=== PATIENT | female | born 1990 | race Caucasian/White ===

== ENCOUNTER 2020-08-27 11:27 | Outpatient (AMBR) | payer MEDICAID, SELFPAY ==
--- NOTE | 2020-08-14 09:20 | PTNOTE_ITS ---
PT OP Initial Eval Patient Information Visit Reasons: LEFT KNEE Medical Diagnosis: M25.562 Treatment Dx #1: Left Knee Pain Treatment Dx #2: Left Knee Weakness Start of Care: 08/14/20 Initial Assessment Subjective Pt is a 30 y/o female s/p left knee partial menisectomy 07/27/20. Pt still has knee pain 4/10 based upon activities. Pt has limitation with walking, standing, chores, self care, cooking, squatting, kneeling, stairs, and performing work duties. Objective Left Knee AROM: -19 deg to 96 deg Left Knee MMTs Quads: 3-/5 Hs: 3-/5 Left Hip MMTs Glute Med: 3/5 Glute Max: 3/5 SLS: unable Assessment Pt demonstrate left knee pain and weakness s/p knee surgery leading to decline function. 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 1) Increase left knee AROM WNL in 8 wks to be able to return back to work 2) Increase left knee MMTs grossly to 4/5 in 8 wks to be able to perform squatting activities 3) Decrease knee pain to 1/10 in 8 wks to be able to walk more than 1 hr 4) Increase SLS to 20 sec in 8 wks to be able to perform self care activities 5) Increase hip MMTs grossly to 4-/5 in 8 wks to be able to perform recreational activities 6) Indep with HEP Treatment Plan 1) Manual Therapy 2) Therapeutic Activities 3) Therapeutic Exercises 4) Modalities (ice, heat) 5) Balance Training Frequency and Duration 2 x wk for 8 wks Certification Dates: 08/14/20 to 11/14/20 Office Procedures PT Procedures PT Date of Service: 08/14/20 OP PT Eval Mod Complex 30 minutes: Yes
--- NOTE | 2020-08-18 09:47 | PTNOTE_ITS ---
PT Outpatient Daily Note Date of Service: 08/18/20 OP Daily Note Visit Reasons: LEFT KNEE Outpatient Physical Therapy Treatment Date: 08/18/20 Subjective: Pt mention that her knee is better. Pt still notice morning stif fness but walking is getting better. Objective: Please see flow chart for list of ther ex performed Assessment: tolerate exercises with minimal pain Plan: Continue with PT Length of Time (minutes) of Treatment: 30 Minutes Office Procedures PT Procedures PT Date of Service: 08/14/20 OP PT Eval Mod Complex 30 minutes: Yes PT Procedures PT Date of Service: 08/18/20 Therapeutic Exercise 30 minutes: Yes
--- NOTE | 2020-08-21 10:09 | PT.ODAYNRPT ---
PT Outpatient Daily Note Date of Service: 08/21/20 OP Daily Note Visit Reasons: LEFT KNEE Outpatient Physical Therapy Treatment Date: 08/21/20 Subjective: Pt's knee hurt worse with bending. Most of patient's pain is in the front of the knee Objective: Please see flow chart for list of ther ex performed Assessment: attempted knee cap mob but unsuccessful due to patient intolerance of touch via sensitivity. Pt started to cry due to pain and mob was stop. Pt still exhibit difficulty and guarded with knee flexion due to ant knee pain Plan: Continue with PT Length of Time (minutes) of Treatment: 30 Minutes Office Procedures PT Procedures PT Date of Service: 08/21/20 Therapeutic Exercise 30 minutes: Yes PT Procedures PT Date of Service: 08/14/20 OP PT Eval Mod Complex 30 minutes: Yes PT Procedures PT Date of Service: 08/18/20 Therapeutic Exercise 30 minutes: Yes
--- NOTE | 2020-08-25 14:39 | PT.ODAYNRPT ---
PT Outpatient Daily Note Date of Service: 08/25/20 OP Daily Note Visit Reasons: LEFT KNEE Outpatient Physical Therapy Treatment Date: 08/25/20 Subjective: Pt's knee feels okay. Pt notice that bending her knee is less pain now Objective: Please see flow chart for list of ther ex performed Assessment: tolerate exercises; able to increase knee flexion AROM with heelslide today with less pain Plan: Continue with PT Length of Time (minutes) of Treatment: 30 Minutes Office Procedures PT Procedures PT Date of Service: 08/21/20 Therapeutic Exercise 30 minutes: Yes PT Procedures PT Date of Service: 08/25/20 Therapeutic Exercise 30 minutes: Yes PT Procedures PT Date of Service: 08/14/20 OP PT Eval Mod Complex 30 minutes: Yes PT Procedures PT Date of Service: 08/18/20 Therapeutic Exercise 30 minutes: Yes
--- NOTE | 2020-08-27 12:45 | PT.ODAYNRPT ---
PT Outpatient Daily Note Date of Service: 08/27/20 OP Daily Note Visit Reasons: LEFT KNEE Outpatient Physical Therapy Treatment Date: 08/27/20 Subjective: Pt mention that her knee is feeling much better. Pt really wants to go back to work and be able to kneel Objective: Please see flow chart for list of ther ex performed Assessment: tolerate exercises with minimal pain Plan: Continue with PT Length of Time (minutes) of Treatment: 30 Minutes Office Procedures PT Procedures PT Date of Service: 08/21/20 Therapeutic Exercise 30 minutes: Yes PT Procedures PT Date of Service: 08/25/20 Therapeutic Exercise 30 minutes: Yes PT Procedures PT Date of Service: 08/27/20 Therapeutic Exercise 30 minutes: Yes PT Procedures PT Date of Service: 08/14/20 OP PT Eval Mod Complex 30 minutes: Yes PT Procedures PT Date of Service: 08/18/20 Therapeutic Exercise 30 minutes: Yes
== END 2020-08-31 23:59 | disposition home or self-care (01) ==
PROVIDERS: PCP Physician Assistant; Referring Provider Physician Assistant; Visit Provider Orthopaedic Surgery
DX: M25.562 Pain in left knee (principal); R53.1 Weakness; R26.2 Difficulty in walking, not elsewhere classified; Z98.890 Other specified postprocedural states
CPT/HCPCS: 97110; 97162

== ENCOUNTER 2024-10-14 11:56 | Inpatient (IN) | payer MEDICAID, SELFPAY ==
[2024-10-14] VITALS (21 sets, daily range): BP systolic 112–148; BP diastolic 77–105; PULSE 82–108; RESP 9–25; TEMP 36.6–37.3; O2SAT 92–100; BMI 36.5
--- NOTE | 2024-10-14 12:02 | EKG_ITS ---
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
[2024-10-14 12:30] LABS: Basophils # (Auto) 0.1 Thou/mm3 (0.0-0.2); Basophils % (Auto) 0 % (0-2.5); Eosinophils # (Auto) 0.4 Thou/mm3 (0.0-0.5); Eosinophils % (Auto) 2 % (0-10); Hematocrit 38.9 % (36.0-46.0); Hemoglobin 14.6 g/dL (12.0-16.0); Immature Granulocytes Auto 0.07 Thou/mm3 (0.00-0.00); Lymphocytes # (Auto) 2.4 Thou/mm3 (1.0-4.8); Lymphocytes % (Auto) 14 % (10-50); Mean Corpuscular HGB Conc 37.5 g/dl (31.0-37.0); Mean Corpuscular Hemoglobin 31.9 pg (25.0-35.0); Mean Corpuscular Volume 85 fL (80-100); Monocytes # (Auto) 1.0 Thou/mm3 (0.0-0.8); Monocytes % (Auto) 6 % (0-12); Neutrophils # (Auto) 13.2 Thou/mm3 (1.8-7.7); Neutrophils % (Auto) 77 % (37-80); Nucleated Red Blood Cell # 0.00 Thou/mm3 (0.00-0.00); Nucleated Red Blood Cell % 0 /100 WBC (0); Platelet Count 234 Thou/mm3 (140-440); RDW Standard Deviation 38.1 fL (36.4-46.3); Red Blood Count 4.57 Miln/mm3 (4.00-5.20); White Blood Count 17.1 Thou/mm3 (3.6-11.0)
--- NOTE | 2024-10-14 12:55 | XR_ITS ---
Examination: PA lateral chest 2 views TECHNIQUE: Upright PA lateral chest 2 views Date and time: October 14, 2024 1315 hours INDICATIONS: Vomiting chest pain beginning 2 days ago. FINDINGS: Normal heart size. No aspiration pneumonia. No pulmonary edema. The osseous structures are intact IMPRESSION: No active disease.
--- NOTE | 2024-10-14 12:56 | PD.EDNV ---
Nausea/Vomit./Diarrhea-RME/HPI General Chief complaint: Nausea/Vomiting/Diarrhea Stated complaint: Vomiting and chest pain X 2 days Time Seen by Provider: 10/14/24 12:44 Source: patient Arrival date/time: 10/14/24 11:56 Mode of arrival: ambulatory Limitations: no limitations RME / HPI RME / HPI Narrative: 34-year-old female presents to the ED with a complaint of chest pain that began 2 days ago that radiates to her back. Also complains of shortness of breath and difficulty breathing. MD complaint: nausea Location of pain: diffuse Related Data Home Medications ?Medication ?Instructions ?Recorded ?Confirmed labetalol 200 mg tablet 200 mg PO BID 03/10/22 03/10/22 vit no.95-ferrous 1 tab PO DAILY 03/10/22 03/10/22 fumarate 28 mg-folic acid 800 mcg tablet () Previous Rx's ?Medication ?Instructions ?Recorded blood sugar diagnostic (Blood #100 ea 06/26/20 Glucose Test strips) blood-glucose meter (Blood Glucose #1 ea 06/26/20 Monitoring kit) lancets 33 gauge (BD Ultra Fine #100 ea 06/26/20 Lancets) pen needle, diabetic 31 gauge x #50 ea 06/26/20 1/4 (Lite Touch Insulin Pen [place]) ferrous sulfate 325 mg (65 mg 325 mg PO BID #60 tabs 03/12/22 iron) tablet ibuprofen 600 mg tablet 600 mg PO Q8H PRN fever or pain 10/01/23 #20 tabs Allergies Allergy/AdvReac Type Severity Reaction Status Date / Time Penicillins Allergy Severe CHEST PAIN Verified 10/14/24 12:00 Review of Systems Constitutional Constitutional: Reports system reviewed and no additional complaints, except as documented Eyes Eyes: Reports system reviewed and no additional complaints, except as documented, Denies dry eyes, Denies exophthalmos and Reports floaters Cardiovascular Cardiovascular: Denies chest pain with activity and Denies claudication ED Exam General Limitations: Present no limitations General appearance: Present alert and in no apparent distress Head Head exam: Present atraumatic Eye Eye exam: Present normal appearance and EOMI ENT ENT exam: Present normal exam, normal oropharynx and mucous membranes moist Neck Neck exam: Present normal inspection, full ROM and trachea midline Chest Chest inspection: Present normal inspection and symmetric chest wall rise Respiratory Respiratory exam: Present normal lung sounds bilaterally Cardiovascular Cardiovascular exam: Present regular rate, normal rhythm and normal heart sounds Abdominal Exam Abdominal exam: Present soft and normal bowel sounds Extremities Exam Extremities exam: Present normal inspection and full ROM Back Exam Back exam: Present normal inspection and full ROM Neurological Exam Neurological exam: Present alert and oriented X3 Psychiatric Psychiatric exam: Present normal affect and normal mood Skin Skin exam: Present warm, dry, intact and normal color Course Course Course Narrative: Patient will have a chest pain workup. Quality Measures none (NA) Orders Category Date Time Status Automobile Repossessor STAT Care 10/14/24 16:04 Active Continuous Pulse Oximetry STAT Care 10/14/24 16:04 Active EKG (ED ONLY) *Do not use* NOW Care 10/14/24 12:02 Completed Insert IV NOW Care 10/14/24 16:04 Active Strict Intake and Output Routine Care 10/14/24 16:04 Ordered EKG (ED Only) Stat Exams 10/14/24 12:02 Draft XR chest 2V Stat Exams 10/14/24 12:55 Completed B-Type Natriuretic Peptide Stat Lab 10/14/24 12:59 Completed Blood Culture (Lab) Stat Lab 10/14/24 16:04 Ordered CBC Stat Lab 10/14/24 12:12 Completed CMP [Comprehensive Metabolic Panel] Stat Lab 10/14/24 12:59 Completed D-Dimer Stat Lab 10/14/24 12:59 Completed Drug Screen,Urine Stat Lab 10/14/24 14:35 Completed LDH (Lactate Dehydrogenase) Stat Lab 10/14/24 12:59 Completed Lactate (Lactic Acid) Stat Lab 10/14/24 16:04 Ordered Lipase Stat Lab 10/14/24 16:04 Ordered Magnesium Stat Lab 10/14/24 12:59 Completed Partial Thromboplastin Time Stat Lab 10/14/24 12:59 Completed Procalcitonin Stat Lab 10/14/24 16:04 Ordered Prothrombin Time with INR Stat Lab 10/14/24 12:59 Completed Troponin I Stat Lab 10/14/24 12:59 Completed Urinalysis Stat Lab 10/14/24 14:35 Completed Magnesium Sulfate 4 GM Ivpb [Magnesium Sulfate Ivpb] Med 10/14/24 16:04 Active 4 gm in 50 ml IV X1 Vital Signs Vital signs: Vital Signs Temperature 98.5 F 10/14/24 12:23 Pulse Rate 101 H 10/14/24 12:23 Respiratory Rate 18 10/14/24 12:23 Blood Pressure 148/96 H 10/14/24 12:23 Pulse Oximetry (%) 98 10/14/24 12:23 Oxygen Delivery Method Room Air 10/14/24 12:23 Pulse ox room air is 98% Nausea/Vomiting/Diarrhea MDM Narrative MDM Narrative:: Patient will be discharged in no apparent distress and she will be informed that cocaine metabolite as well as marijuana have been discovered in her bloodstream. Patient data External records reviewed:: Other (specify) (NA) Clinical information provided by:: none (NA) Social determinants that could affect healthcare access:: none Patient has the following chronic illnesses:: NA How is presenting disease/condition affected by chronic disease/condition?: no chronic disease (NA) Medications / Prescriptions Medication administrations:: Medication Administration History Magnesium Sulfate (Magnesium Sulfate Ivpb) 4 gm in 50 mls @ 12.5 mls/hr IV X1 ONE Stop: 10/14/24 20:03 Consultations Consultation(s) initiated? (list below): No Diagnosis Nausea Differential Diagnosis: gastroenteritis, clostridium difficile infection and drug-induced nausea and vomiting Admission Indicated Admission indicated?: not indicated Admission Request Was there a request for admission?: No Disposition Plan Disposition Plan: Discharge Discharge Attestation Discharge Attestation: The patient and all family members were given an opportunity to ask questions and understood the discharge instructions. Discharge instructions specifically effects, indications for sooner follow up or return to the emergency department, and the expected course of current diagnosis. Patient condition: Stable Discharge Plan Prescriptions/Referrals Prescriptions/Med Rec: No Action (DME) blood-glucose meter [Blood Glucose Monitoring] Kit See Rx Instructions .ROUTE .MEDSUPPLY Qty: 1 0RF Rx Instructions: As directed check BS 3 times a day (DME) pen needle, diabetic [Lite Touch Insulin Pen [place]] 31 gauge x 1/4 needle See Rx Instructions .ROUTE .MEDSUPPLY Qty: 50 0RF Rx Instructions: As directed (DME) Blood Glucose Test Strip See Rx Instructions .ROUTE .MEDSUPPLY Qty: 100 0RF Rx Instructions: As directed check BS 3 times a day (DME) lancets [BD Ultra Fine Lancets] 33 gauge misc See Rx Instructions .ROUTE .MEDSUPPLY Qty: 100 0RF Rx Instructions: As directed check BS 3 times a day labetalol 200 mg tablet 200 mg PO BID Patient Comments: TAKE 1 TABLET BY MOUTH TWICE A DAY PNV cmb#95-ferrous fumarate-FA [] 28 mg iron- 800 mcg tablet 1 tab PO DAILY Patient Comments: TAKE 1 TABLET BY MOUTH EVERY DAY ferrous sulfate 325 mg (65 mg iron) tablet 325 mg PO BID Qty: 60 1RF ibuprofen 600 mg tablet 600 mg PO Q8H PRN (Reason: fever or pain) Qty: 20 0RF Referrals: Lissette Portillo PA-C [Primary Care Provider] - In 1 week Patient/Caregiver Discharge Instructions Print Language: Bel[place]ian
[2024-10-14 13:53] LABS: D-Dimer < 250 ng/mL (<600)
[2024-10-14 13:59] LABS: Alanine Aminotransferase 20 U/L (10-49); Albumin, Serum 4.6 gm/dL (3.5-5.0); Albumin/Globulin Ratio 1.6 (1.2-2.2); Alkaline Phosphatase 121 U/L (46-116); Anion Gap 19 (7-16); Aspartate Amino Transferase 30 U/L (0-34); BUN/Creatinine Ratio 9 Ratio (12-20); Bilirubin,Total 0.6 mg/dL (0.3-1.2); Blood Urea Nitrogen 8 mg/dL (9-23); Calcium 9.3 mg/dL (8.3-10.6); Calcium (Corrected) 9.3 mg/dL (8.5-10.1); Carbon Dioxide 17.2 mMol/L (20.0-31.0); Chloride 102 mMol/L (98-107); Creatinine (Component) 0.9 mg/dL (0.6-1.3); Estimated Creatinine Clearance 108.6 mL/min (>60); Globulin 2.9 gm/dL (2.3-3.5); Glucose 290 mg/dL (74-106); Magnesium 1.3 mg/dL (1.6-2.6); Osmolality,Calculated 284 (275-295); Sodium 138 mMol/L (136-145); Total Protein 7.5 gm/dL (5.7-8.2); Troponin I < 0.002 ng/mL (0.0-0.045); eGFR > 60 See Note
[2024-10-14 14:03] LABS: LDH (Lactate Dehydrogenase) 380 U/L (120-246); Potassium 4.5 mMol/L (3.4-5.1)
[2024-10-14 14:15] LABS: B-Type Natriuretic Peptide < 20 pg/mL (0-100)
[2024-10-14 14:44] LABS: Collection Type, Urine Clean Catch; RBC,Urine 0 /hpf (0-3)
[2024-10-14 15:02] LABS: INR 0.9 (0.9-1.3); Partial Thromboplastin Time 24.5 Seconds (22.0-36.0); Prothrombin Time 10.4 Seconds (9.0-12.2)
[2024-10-14 15:02] LABS: Bilirubin,Urine Negative (Negative); Blood,Urine Negative (Negative); Clarity,Urine Turbid (Clear/Hazy); Color,Urine Yellow (Lt Yel-Yel); Glucose, Urine 4+ (Negative); Ketones,Urine 2+ (Negative); Leukocyte Esterase,Urine Negative (Negative); Nitrite,Urine Negative (Negative); PH,Urine 5.5 (5.0-7.0); Protein,Urine 1+ (Neg - Trace); Specific Gravity,Urine 1.031 (1.001-1.035); Squamous Epithelial Cell,Urine 14 /hpf (0-5); Urobilinogen,Urine Negative mg/dL (0.0-1.0); WBC,Urine 1 /hpf (0-5)
[2024-10-14 15:07] LABS: Amphetamine/Methamp Scrn,U Negative (Negative); Barbiturate Screen,Urine Negative (Negative); Benzodiazepines Screen,Urine Negative (Negative); Benzoylecgonine Screen, Ur Negative (Negative); Fentanyl Screen,Urine Negative (Negative); Opiate Screen,Urine Negative (Negative); THC Screen,Urine Negative (Negative)
--- NOTE | 2024-10-14 16:08 | EDNOTE_ITS ---
ED Chest Pain RME/HPI General Chief Complaint: Nausea/Vomiting/Diarrhea Stated Complaint: Vomiting and chest pain X 2 days Time Seen by Provider: 10/14/24 12:44 Source: patient Arrival date/time: 10/14/24 11:56 Mode of arrival: ambulatory Limitations: no limitations RME / HPI RME / HPI narrative: 34-year-old female presents to the ED with a complaint of chest pain that began 2 days ago that radiates to her back. Also complains of shortness of breath and difficulty breathing. DR. ARAVIND SORTO ED EVALUATION 34 year old female presents to the ED for evaluation of central chest pain beginning yesterday. Described as tightness in sensation, rating as moderate. Accompanied by sweating, shortness of breath and sharp epigastric pain that r adiates to her back. Reportedly had experienced similar pain before and evaluated by PCP. However, due to insurance was unable to have additional testing done and the cause of pain is unknown. Denies pain being associated with food. Denies fevers, chills, vomiting, diarrhea, constipation, or urinary symptoms. Related Data Home Medications ?Medication ?Instructions ?Recorded ?Confirmed losartan 50 mg tablet 50 mg PO DAILY 10/16/2410/01 Previous Rx's ?Medication ?Instructions ?Recorded blood sugar diagnostic (Blood #100 ea 06/26/20 Glucose Test strips) blood-glucose meter (Blood Glucose #1 ea 06/26/20 Monitoring kit) lancets 33 gauge (BD Ultra Fine #100 ea 06/26/20 Lancets) pen needle, diabetic 31 gauge x #50 ea 06/26/2004/06 (Lite Touch Insulin Pen Lawtell) blood-glucose sensor (FreeStyle #1 ea 10/16/24 Mayte 3 Plus Sensor device) atorvastatin 20 mg tablet 20 mg PO HS #30 tabs 5 fenofibrate nanocrystallized 145 145 mg PO QDAY #30 ta bs 10/18/24 mg tablet insulin glargine 100 unit/mL (3 25 unit (0.25 mL) subc ut QAM #15 mL 10/18/24 mL) subcutaneous pen insulin glargine U-300 conc 300 25 unit (0.0833 mL) muhammad bcut QDAY 1 10/18/24 unit/mL (3 mL) subcutaneous pen month #6 mL ketorolac 10 mg tablet 10 mg PO Q8H PRN pain #14 ta bs 10/18/24 ondansetron HCl 4 mg tablet 4 mg PO Q8H PRN nausea and 10/18/24 vomiting #14 tabs pen needle, diabetic 29 gauge x #100 ea 10/18/24 1/2 (Pen Needle) polyethylene glycol 3350 17 gram 17 g PO QDAY #30 ea 0 10/18/24 oral powder packet (HealthyLax) Allergies Allergy/AdvReac Type Severity Reaction Status Date / Time Penicillins Allergy Severe CHEST PAIN Verified 10/14/24 12:00 Review of Systems Review of Systems Systems Reviewed: All systems reviewed, normal except as documented Past Medical History Past Medical History NEUROLOGIC: Negative Neurological Disorders CARDIAC: 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) GASTROINTESTINAL: Positive Obesity GENITOURINARY: Positive Genitourinary Disorders and Kidney Stones (past hx) REPRODUCTIVE: Positive Previous Pregnancies ENDOCRINE: Positive Endocrine Disorders and Diabetes Mellitus Type 2 OTHER HISTORY: Positive Hospitalization Family History FAMILY HISTORY: Positive Family Cardiac Disorders (father - heart attack/heart surgery); Negative Family Psychiatric Problems, Family Respiratory Disorders, Family Gastrointestinal Problems, Family Cancer, Family Surgery or Family Anesthesia Re action Surgical History SURGICAL: Positive Section (x2); Negative Endocrine Surgery, Ear Surgery, Abdominal Surgery, Nephrectomy or Joint Replacement Social History SMOKING STATUS: Never smoker SECOND HAND EXPOSURE: No SUBSTANCE USE: does not use ED Exam General Limitations: Present no limitations General appearance: Present alert and in no apparent distress Head Head exam: Present atraumatic and normocephalic Eye Eye exam: Present normal appearance, PERRL and EOMI ENT ENT exam: Present normal exam, normal oropharynx and mucous membranes moist Neck Neck exam: Present normal inspection, full ROM and trachea midline Chest Chest inspection: Present symmetric chest wall rise and other (chest wall tenderness ) Respiratory Respiratory exam: Present normal lung sounds bilaterally Cardiovascular Cardiovascular exam: Present regular rate, normal rhythm and normal heart sounds Abdominal Exam Abdominal exam: Present soft, tenderness (in all quadrants ) and normal bowel sounds Extremities Exam Extremities exam: Present normal inspection and full ROM Back Exam Back exam: Present full ROM and other (Point tenderness along the T and L spine, bilateral CVA tenderness ) Neurological Exam Neurological exam: Present alert, oriented X3 and CN II-XII intact Psychiatric Psychiatric exam: Present normal affect and normal mood Skin Skin exam: Present warm, dry, intact and normal color Course Course Course Narrative: Patient will have a chest pain workup. Quality Measures none Orders Category Date Time Status CT Screening NOW Care 10/14/24 16:14 Completed Belt Brander Q4H Care 10/14/24 16:04 Completed Continuous Pulse Oximetry STAT Care 10/14/24 16:04 Completed EKG (ED ONLY) *Do not use* NOW Care 10/14/24 12:02 Completed Insert IV NOW Care 10/14/24 16:04 Completed Strict Intake and Output Routine Care 10/14/24 16:[address] chest abdomen pelvis w Stat Exams 10/14/24 16:14 Completed EKG (ED Only) Stat Exams 10/14/24 12:02 Draft XR chest 2V Stat Exams 10/14/24 12:55 Completed B-Type Natriuretic Peptide Stat Lab 10/14/24 12:59 Completed Blood Culture (Lab) Stat Lab 10/14/24 16:25 Completed CBC Stat Lab 10/14/24 12:12 Completed CMP [Comprehensive Metabolic Panel] Stat Lab 10/14/24 12:59 Completed D-Dimer Stat Lab 10/14/24 12:59 Completed Drug Screen,Urine Stat Lab 10/14/24 14:35 Completed HCG Qualitative,Urine Stat Lab 10/14/24 14:35 Completed Ketone [Beta Hydroxybutyrate] Stat Lab 10/14/24 16:25 Completed Ketone [Beta Hydroxybutyrate] Stat Lab 10/14/24 17:55 Completed LDH (Lactate Dehydrogenase) Stat Lab 10/14/24 12:59 Completed Lactate (Lactic Acid) Stat Lab 10/14/24 16:25 Completed Lipase Stat Lab 10/14/24 16:25 Completed Magnesium Stat Lab 10/14/24 12:59 Completed Partial Thromboplastin Time Stat Lab 10/14/24 12:59 Completed Procalcitonin Stat Lab 10/14/24 16:25 Completed Prothrombin Time with INR Stat Lab 10/14/24 12:59 Completed Troponin I Stat Lab 10/14/24 12:59 Completed Urinalysis Stat Lab 10/14/24 14:35 Completed Famotidine Inj [Pepcid Inj] Med 10/14/24 17:34 Discontinued 20 mg IVP X1 ONE HYDROmorphone INJ [Dilaudid Inj] Med 10/14/24 17:45 Discontinued 0.5 mg IVP Q30M PRN HYDROmorphone INJ [Dilaudid Inj] Med 10/14/24 19:29 Discontinued 1 mg IVP X1 ONE Insulin Reg 100 Units/100 ml [Myxredlin] Med 10/14/24 17:00 Discontinued 100 unit in 100 ml IV 0.1 unit/kg/hr Insulin Regular Med 10/14/24 17:22 Discontinued 10 unit SC X1 ONE Magnesium Sulfate 4 GM Ivpb [Magnesium Sulfate Ivpb] Med 10/14/24 16:04 Discontinued 4 gm in 50 ml IV X1 Ondansetron Inj [Zofran Inj] Med 10/14/24 17:34 Discontinued 4 mg IVP X1 ONE Sodium Chloride 0.9% 1000 ml [Ns] 1,000 ml Med 10/14/24 16:12 Discontinued IV 999 mls/hr Sodium Chloride 0.9% 1000 ml [Ns] 1,000 ml Med 10/14/24 17:20 Discontinued IV 999 mls/hr mg Hyd/Al Hyd/Carlie Susp [Maalox Susp] Med 10/14/24 17:34 Discontinued 30 ml PO X1 ONE Vital Signs Vital signs: Vital Signs Temperature 98.5 F 10/14/24 12:23 Pulse Rate 101 H 10/14/24 12:23 Respiratory Rate 18 10/14/24 12:23 Blood Pressure 148/96 H 10/14/24 12:23 Pulse Oximetry (%) 98 10/14/24 12:23 Oxygen Delivery Method Room Air 10/14/24 12:23 Pulse ox is 98% on room air which is adequate. Chest Pain MDM Narrative MDM Narrative:: Whitney Medrano am scribing for and in the presence of Dr. Edward. 1800: Patient signed out to Dr. Holcomb pending CT abdomen and final disposition. Patient data External records reviewed:: [facility] previous records (I reviewed ED visit on 10/01/2023 ) Clinical information provided by:: patient Social determinants that could affect healthcare access:: none Patient has the following chronic illnesses:: Hx of c-sections, no chronic medical hx reported How is presenting disease/condition affected by chronic disease/condition?: uneffected by Evaluation data The following diagnostics were reviewed and interpreted by me:: lab results, radiology exam(s) and EKG tracing(s) (EKG @ 12:24 PM. Sinus tachycardia, rate 114, normal axis, no ectopy, no signs of acute ischemia ) Lab and/or radiology exams considered but not ordered:: None Interpretation Summary: Ordering Physician: Yobani Pacheco PA-C Date of Service: 10/14/24 Procedure(s): XR chest 2V Accession Number(s): [id number] cc: Frankie Maciel MD; Yobani Pacheco PA-C; Lissette Portillo PA-C~ Examination: PA lateral chest 2 views TECHNIQUE: Upright PA lateral chest 2 views Date and time: October 14, 2024 1315 hours INDICATIONS: Vomiting chest pain beginning 2 days ago. FINDINGS: Normal heart size. No aspiration pneumonia. No pulmonary edema. The osseous structures are intact IMPRESSION: No active disease. Dictated By: Frankie Maciel MD Signed By: <Electronically signed by Frankie Maciel MD in OV> 10/14/24 1326 Medications / Prescriptions Medications or Prescriptions considered but not ordered:: None Medication administrations:: Medication Administration History Discontinued Medications Acetaminophen (Acetaminophen 325 Mg Tablet) 650 mg PO Q6H PRN PRN Reason: PAIN SCALE 1-3 (mild Stop: 11/13/24 19:45 Last Admin: 10/16/24 07:45 Dose: 650 mg Documented By: LP Comments: Pt requested Tylenol until it was time for Dilaudid. Pt c/o really bad headache. Admin: 10/15/24 10:30 Dose: 650 mg Documented By: WL Al Hydrox/Mg Hydrox/Simethicone (Mg Hyd/Al Hyd/Carlie (Maalox Reg) Susp 30 Ml Udc) 30 ml PO X1 ONE Stop: 10/14/24 17:35 Last Admin: 10/14/24 18:08 Dose: 30 ml Documented By: VG Atorvastatin Calcium (Atorvastatin Calcium 20 Mg Tablet) 20 mg PO HS [place] Stop: 11/14/24 20:59 Last Admin: 10/17/24 21:56 Dose: 20 mg Documented By: Admin: 10/16/24 20:14 Dose: 20 mg Documented By: Admin: 10/15/24 20:23 Dose: 20 mg Documented By: WO Dextrose (Dextrose 50%-Water Inj 50 Ml Syringe) 25 ml IV Q15MIN PRN PRN Reason: BG 50-70 responsive npo pt Stop: 11/13/24 19:59 Dextrose (Dextrose 50%-Water Inj 50 Ml Syringe) 50 ml IV Q15MIN PRN PRN Reason: BG <50 OR BG <70 & pt unresponsive Stop: 11/13/24 19:59 Dextrose (Dextrose 50%-Water Inj 50 Ml Syringe) 25 ml IV Q15MIN PRN PRN Reason: Blood sugar between 50- 69 mg/dL Stop: 11/13/24 21:39 Dextrose (Dextrose 50%-Water Inj 50 Ml Syringe) 50 ml IV Q15MIN PRN PRN Reason: Blood sugar less than 50 mg/dL Stop: 11/13/24 21:39 Famotidine (Famotidine Inj 10 Mg/Ml Vial 2 Ml) 20 mg IVP X1 ONE Stop: 10/14/24 17:35 Last Admin: 10/14/24 18:09 Dose: 20 mg Documented By: JENNIE Fenofibrate (Fenofibrate 145 Mg Tablet (Non-Formulary)) 145 mg PO QDAY [facility] Stop: 11/14/24 10:44 Last Admin: 10/18/24 09:00 Dose: 145 mg Documented By: Admin: 10/17/24 09:17 Dose: 145 mg Documented By: Admin: 10/16/24 09:39 Dose: 145 mg Documented By: Admin: 10/15/24 11:26 Dose: 145 mg Documented By: JOHN Glucagon (Glucagon Inj 1 Mg Vial) 1 mg IM Q15MIN PRN PRN Reason: BG <70, and no IV access Glucagon (Glucagon Inj 1 Mg Vial) 1 mg IM QDAY PRN PRN Reason: Blood sugar less than 70 mg/dL Stop: 11/13/24 21:39 Glucagon (Glucagon Inj 1 Mg Vial) 1 mg IM Q15MIN PRN PRN Reason: BG <70, and no IV access Heparin Sodium (Porcine) (Heparin Sod Inj 5000 Unit/Ml Vial) 5,000 unit SC Q12HR [facility] Stop: 10/28/24 20:59 Last Admin: 10/18/24 08:58 Dose: 5,000 unit Documented By: IGOR Co-signed By: PORSHA Admin: 10/17/24 21:57 Dose: 5,000 unit Documented By: JOSE Co-signed By: PATI Admin: 10/17/24 09:18 Dose: 5,000 unit Documented By: INDIGO Co-signed By: KAYLEIGH Admin: 10/16/24 20:14 Dose: 5,000 unit Documented By: PG Co-signed By: MADELEINE Admin: 10/16/24 08:42 Dose: 5,000 unit Documented By: DRU Co-signed By: IFTIKHAR Admin: 10/15/24 20:22 Dose: 5,000 unit Documented By: JESS Co-signed By: GAMALIEL Admin: 10/15/24 08:04 Dose: 5,000 unit Documented By: JOHN Co-signed By: jovi Admin: 10/14/24 21:21 Dose: 5,000 unit Documented By: LIGIA Co-signed By: JASMYN Hydromorphone HCl (Hydromorphone Inj 2 Mg/Ml Vial) 0.5 mg IVP Q30M PRN PRN Reason: PAIN Stop: 10/15/24 17:44 Last Admin: 10/14/24 18:08 Dose: 0.5 mg Documented By: JENNIE Comments: . Hydromorphone HCl (Hydromorphone Inj 2 Mg/Ml Vial) 1 mg IVP X1 ONE Stop: 10/14/24 19:30 Last Admin: 10/14/24 19:42 Dose: 1 mg Documented By: LIGIA Hydromorphone HCl (Hydromorphone Inj 2 Mg/Ml Vial) 1 mg IVP Q4H PRN PRN Reason: Pain 7-10 Stop: 10/22/24 19:56 Last Admin: 10/18/24 09:00 Dose: 1 mg Documented By: [email or web address] Admin: 10/18/24 04:04 Dose: 1 mg Documented By: Admin: 10/17/24 22:16 Dose: 1 mg Documented By: Admin: 10/17/24 16:03 Dose: 1 mg Documented By: Admin: 10/17/24 09:18 Dose: 1 mg Documented By: Admin: 10/16/24 23:47 Dose: 1 mg Documented By: Admin: 10/16/24 18:28 Dose: 1 mg Documented By: Admin: 10/16/24 08:43 Dose: 1 mg Documented By: Admin: 10/16/24 04:18 Dose: 1 mg Documented By: Admin: 10/15/24 19:38 Dose: 1 mg Documented By: Admin: 10/15/24 13:41 Dose: 1 mg Documented By: Admin: 10/15/24 05:14 Dose: 1 mg Documented By: Admin: 10/14/24 22:20 Dose: 1 mg Documented By: MARANDA Magnesium Sulfate (Magnesium Sulfate Ivpb) 4 gm in 50 mls @ 12.5 mls/hr IV X1 ONE Stop: 10/14/24 20:03 Last Admin: 10/14/24 17:24 Dose: 12.5 mls/hr Documented By: VG Sodium Chloride (Ns) 1,000 mls @ 999 mls/hr IV .Q1H1M ONE Stop: 10/14/24 17:12 Last Infusion: 10/14/24 19:25 Dose: Infused Documented By: Admin: 10/14/24 17:22 Dose: 999 mls/hr Documented By: VG Insulin Human Regular (Myxredlin) 100 unit in 100 mls @ 10.274 mls/hr IV .Q9H44M PRN; Protocol PRN Reason: PER PROTOCOL Stop: 11/13/24 16:59 Sodium Chloride (Ns) 1,000 mls @ 999 mls/hr IV .Q1H1M ONE Stop: 10/14/24 18:20 Last Admin: 10/14/24 17:57 Dose: 999 mls/hr Documented By: VG Lactated Ringer's (Lactated Ringers) 1,000 mls @ 200 mls/hr IV .Q5H [place] Stop: 11/13/24 19:59 Last Admin: 10/14/24 21:40 Dose: 200 mls/hr Documented By: LIGIA(2) Insulin Human Regular (Myxredlin) 100 unit in 100 mls @ 10.274 mls/hr IV .Q9H44M [place]ER[place] Stop: 11/13/24 21:44 Last Infusion: 10/15/24 12:30 Dose: 0 unit/kg/hr, 0 mls/hr Documented By: JOHN Co-signed By: jovi Admin: 10/15/24 08:00 Dose: 0.1 unit/kg/hr, 10.274 mls/hr Documented By: JOHN Co-signed By: jovi Infusion: 10/15/24 08:00 Dose: Infused Documented By: JOHN Co-signed By: jovi Infusion: 10/15/24 01:00 Dose: 0.1 unit/kg/hr, 10.274 mls/hr Documented By: MARANDA Co-signed By: JAMEL Infusion: 10/15/24 00:00 Dose: 0 unit/kg/hr, 0 mls/hr Documented By: CLT Co-signed By: JAMEL Infusion: 10/14/24 23:00 Dose: 0.1 unit/kg/hr, 10.274 mls/hr Documented By: CLT Co-signed By: JAMEL Admin: 10/14/24 22:15 Dose: 0.1 unit/kg/hr, 10.274 mls/hr Documented By: CLT Co-signed By: AJMEL Dextrose/Lactated Ringer's (D5-Lr) 1,000 mls @ 150 mls/hr IV .Q6H40M [place]ER[place] Stop: 11/13/24 21:44 Last Admin: 10/15/24 10:28 Dose: Not Given Documented By: JOHN Non-Admin Reason: Wrong Time Admin: 10/15/24 07:51 Dose: Not Given Documented By: JOHN Non-Admin Reason: Cancelled by Provider Admin: 10/14/24 23:01 Dose: Not Given Documented By: KEVINT Non-Admin Reason: Cancelled by Provider Potassium Chloride (Kcl Ivpb) 10 meq in 100 mls @ 100 mls/hr IV X1 ONE Stop: 10/14/24 23:16 Last Admin: 10/14/24 22:37 Dose: Not Given Documented By: KEVINT Non-Admin Reason: Cancelled by Provider Potassium Chloride (Kcl Ivpb) 10 meq in 100 mls @ 100 mls/hr IV .Q1H PRN PRN Reason: IF POTASSIUM LESS THAN 3.3 Stop: 11/13/24 22:24 Magnesium Sulfate (Magnesium Sulfate Ivpb) 2 gm in 50 mls @ 25 mls/hr IV .Q2H PRN PRN Reason: PER DKA PROTOCOL Stop: 11/13/24 22:24 Insulin Human Regular 100 unit (/ IV Miscellaneous Supplies) 100 mls @ 10.274 mls/hr IV .Q9H44M PRN; Protocol PRN Reason: PER PROTOCOL Stop: 11/13/24 22:24 Dextrose/Lactated Ringer's (D5-Lr) 1,000 mls @ 250 mls/hr IV .Q4H PRN PRN Reason: PER PROTOCOL Stop: 11/13/24 22:24 Lactated Ringer's (Lactated Ringers) 1,000 mls @ 250 mls/hr IV .Q4H PRN PRN Reason: PER PROTOCOL Stop: 10/15/24 22:24 Last Infusion: 10/15/24 00:00 Dose: 0 mls/hr Documented By: Admin: 10/14/24 23:14 Dose: 250 mls/hr Documented By: CLT Potassium Chloride 20 meq/ (Lactated Ringer's) 1,010 mls @ 250 mls/hr IV .Q4H3M PRN PRN Reason: K LEVEL 3.3 TO 5.3mM/L Stop: 11/13/24 22:24 Potassium Chloride 40 meq/ (Lactated Ringer's) 1,020 mls @ 250 mls/hr IV .Q4H5M PRN PRN Reason: K LEVEL < 3.3 mM/L Stop: 11/13/24 22:24 Potassium Chloride 40 meq/ (Dextrose/Lactated Ringer's) 1,020 mls @ 250 mls/hr IV .Q4H5M PRN PRN Reason: K LEVEL < 3.3mM/L Stop: 11/13/24 22:24 Potassium Cl/Dextrose/Lact Ringer's (Kcl 20 Meq/L In D5-Lr) 20 meq in 1,000 mls @ 250 mls/hr IV .Q4H PRN PRN Reason: K LEVEL 3.3 TO 5.3 mM/L Stop: 11/13/24 22:24 Last Infusion: 10/15/24 11:33 Dose: Infused Documented By: Admin: 10/15/24 02:47 Dose: 250 mls/hr Documented By: Infusion: 10/15/24 02:44 Dose: Infused Documented By: Admin: 10/14/24 22:44 Dose: 250 mls/hr Documented By: CLT Potassium Chloride (Kcl Ivpb) 10 meq in 100 mls @ 50 mls/hr IV PRN PRN PRN Reason: K LEVEL 3.3 to 5.3 & BG > 200 Stop: 11/13/24 22:24 Potassium Phosphate (Pot Phos 15 Mmol In Ns 250 Ml) 15 mmol in 250 mls @ 62.5 mls/hr IV PRN PRN PRN Reason: Phosphate <= 1mg/dL Stop: 11/13/24 22:24 Sodium Phosphate 15 mmol/ (Sodium Chloride) 255 mls @ 62.5 mls/hr IV .Q4H5M PRN PRN Reason: Phosphate <= 1mg/dL and K> than 5.3 Stop: 11/13/24 22:24 Potassium Chloride (Kcl Ivpb) 10 meq in 100 mls @ 100 mls/hr IV .Q1H PRN PRN Reason: IF POTASSIUM LESS THAN 3.3 Stop: 11/13/24 22:24 Magnesium Sulfate (Magnesium Sulfate Ivpb) 2 gm in 50 mls @ 25 mls/hr IV .Q2H PRN PRN Reason: PER DKA PROTOCOL Stop: 11/13/24 22:24 Dextrose/Lactated Ringer's (D5-Lr) 1,000 mls @ 250 mls/hr IV .Q4H PRN PRN Reason: PER PROTOCOL Stop: 11/13/24 22:24 Lactated Ringer's (Lactated Ringers) 1,000 mls @ 250 mls/hr IV .Q4H PRN PRN Reason: PER PROTOCOL Stop: 10/15/24 22:24 Potassium Chloride 20 meq/ (Lactated Ringer's) 1,010 mls @ 250 mls/hr IV .Q4H3M PRN PRN Reason: K LEVEL 3.3 TO 5.3mM/L Stop: 11/13/24 22:24 Potassium Chloride 40 meq/ (Lactated Ringer's) 1,020 mls @ 250 mls/hr IV .Q4H5M PRN PRN Reason: K LEVEL < 3.3 mM/L Stop: 11/13/24 22:24 Potassium Chloride 40 meq/ (Dextrose/Lactated Ringer's) 1,020 mls @ 250 mls/hr IV .Q4H5M PRN PRN Reason: K LEVEL < 3.3mM/L Stop: 11/13/24 22:24 Potassium Cl/Dextrose/Lact Ringer's (Kcl 20 Meq/L In D5-Lr) 20 meq in 1,000 mls @ 250 mls/hr IV .Q4H PRN PRN Reason: K LEVEL 3.3 TO 5.3 mM/L Stop: 11/13/24 22:24 Potassium Chloride (Kcl Ivpb) 10 meq in 100 mls @ 50 mls/hr IV PRN PRN PRN Reason: K LEVEL 3.3 to 5.3 & BG > 200 Stop: 11/13/24 22:24 Potassium Phosphate (Pot Phos 15 Mmol In Ns 250 Ml) 15 mmol in 250 mls @ 62.5 mls/hr IV PRN PRN PRN Reason: Phosphate <= 1mg/dL Stop: 11/13/24 22:24 Sodium Phosphate 15 mmol/ (Sodium Chloride) 255 mls @ 62.5 mls/hr IV .Q4H5M PRN PRN Reason: Phosphate <= 1mg/dL and K> than 5.3 Stop: 11/13/24 22:24 Potassium Chloride (Kcl Ivpb) 10 meq in 100 mls @ 100 mls/hr IV Q1H [place] Stop: 10/15/24 01:58 Last Admin: 10/15/24 07:51 Dose: Not Given Documented By: JOHN Non-Admin Reason: Cancelled by Provider Admin: 10/15/24 07:51 Dose: Not Given Documented By: JOHN Non-Admin Reason: Cancelled by Provider Lactated Ringer's (Lactated Ringers) 1,000 mls @ 150 mls/hr IV .Q6H40M PRN PRN Reason: PER PROTOCOL Stop: 10/15/24 22:24 Last Admin: 10/15/24 11:33 Dose: 150 mls/hr Documented By: JOHN Dextrose/Lactated Ringer's (D5-Lr) 1,000 mls @ 150 mls/hr IV .Q6H40M PRN PRN Reason: PER PROTOCOL Stop: 11/13/24 22:24 Lactated Ringer's (Lactated Ringers) 1,000 mls @ 150 mls/hr IV .Q6H40M PRN PRN Reason: PER PROTOCOL Stop: 10/15/24 22:24 Magnesium Sulfate (Magnesium Sulfate Ivpb) 2 gm in 50 mls @ 25 mls/hr IV X1 ONE Stop: 10/15/24 09:17 Last Admin: 10/15/24 07:59 Dose: 25 mls/hr Documented By: JOHN Lactated Ringer's (Lactated Ringers) 1,000 mls @ 150 mls/hr IV .Q6H40M [place]ER[place] Stop: 11/14/24 15:20 Last Admin: 10/17/24 15:59 Dose: 150 mls/hr Documented By: Infusion: 10/17/24 08:16 Dose: Infused Documented By: Admin: 10/17/24 01:35 Dose: 150 mls/hr Documented By: Infusion: 10/17/24 00:28 Dose: Infused Documented By: Admin: 10/16/24 17:47 Dose: 150 mls/hr Documented By: Infusion: 10/16/24 13:00 Dose: Infused Documented By: Admin: 10/16/24 06:19 Dose: 150 mls/hr Documented By: Infusion: 10/16/24 06:19 Dose: Infused Documented By: Admin: 10/16/24 00:00 Dose: 150 mls/hr Documented By: Infusion: 10/15/24 23:08 Dose: Infused Documented By: Admin: 10/15/24 16:27 Dose: 150 mls/hr Documented By: JOHN Magnesium Sulfate (Magnesium Sulfate Ivpb) 2 gm in 50 mls @ 25 mls/hr IV X1 ONE Stop: 10/16/24 10:15 Last Infusion: 10/16/24 13:34 Dose: Infused Documented By: Admin: 10/16/24 11:35 Dose: 25 mls/hr Documented By: DRU Magnesium Sulfate (Magnesium Sulfate Ivpb) 4 gm in 50 mls @ 12.5 mls/hr IV X1 ONE Stop: 10/17/24 12:29 Last Admin: 10/17/24 09:18 Dose: 12.5 mls/hr Documented By: INDIGO Insulin Glargine (Insulin Glargine (Lantus) 5 Unit/0.05 Ml (Per 5 Units)) 25 unit SC QDAY [facility] Stop: 11/14/24 10:44 Last Admin: 10/18/24 09:01 Dose: 25 unit Documented By: [email or web address] Co-signed By: PORSHA Admin: 10/17/24 09:19 Dose: 25 unit Documented By: INDIGO Co-signed By: KAYLEIGH Admin: 10/16/24 08:42 Dose: 25 unit Documented By: DRU Co-signed By: IFTIKHAR Admin: 10/15/24 11:14 Dose: 25 unit Documented By: JOHN Co-signed By: TM Insulin Human Lispro (Insulin Lispro (Admelog) 1 Unit/0.01 Ml Unit) 0 unit SC Q6HR [place]; Protocol Stop: 11/13/24 19:59 Last Admin: 10/14/24 21:19 Dose: 2 unit Documented By: LIGIA Co-signed By: JASMYN Insulin Human Lispro (Insulin Lispro (Admelog) 1 Unit/0.01 Ml Unit) 0 unit SC ACHS [facility]; Protocol Stop: 11/14/24 11:29 Last Admin: 10/18/24 11:54 Dose: 1 unit Documented By: IGOR Co-signed By: PORSHA Admin: 10/18/24 07:52 Dose: Not Given Documented By: IGOR Non-Admin Reason: Per Protocol Admin: 10/17/24 22:09 Dose: Not Given Documented By: CTF Non-Admin Reason: Per Protocol Admin: 10/17/24 18:06 Dose: Not Given Documented By: LH Non-Admin Reason: Per Protocol Admin: 10/17/24 17:07 Dose: Not Given Documented By: LH Non-Admin Reason: Per Protocol Admin: 10/17/24 09:18 Dose: 1 unit Documented By: INDIGO Co-signed By: KAYLEIGH Admin: 10/16/24 20:18 Dose: Not Given Documented By: PG Non-Admin Reason: Contraindicated Admin: 10/16/24 17:44 Dose: Not Given Documented By: DRU Non-Admin Reason: Glucose, LOW Admin: 10/16/24 11:52 Dose: 1 unit Documented By: DRU Co-signed By: IFTIKHAR Admin: 10/16/24 08:44 Dose: 2 unit Documented By: DRU Co-signed By: IFTIKHAR Admin: 10/15/24 20:22 Dose: 1 unit Documented By: JESS Co-signed By: GAMALIEL Admin: 10/15/24 17:38 Dose: 1 unit Documented By: JOHN Co-signed By: JAMEL Admin: 10/15/24 11:29 Dose: Not Given Documented By: WL Non-Admin Reason: pt on insulin gtt Insulin Human Regular (Insulin Hum Regular 1 Unit/0.01 Ml (Per Unit)) 10 unit SC X1 ONE Stop: 10/14/24 17:23 Last Admin: 10/14/24 18:00 Dose: 10 unit Documented By: VG Co-signed By: SHERLYN Lactulose (Lactulose Syrup 20 Gm/30 Ml Udc) 10 gm PO TID [facility] [place]; Protocol Stop: 11/16/24 16:29 Last Admin: 10/18/24 05:55 Dose: Not Given Documented By: CTF Non-Admin Reason: Patient Refused Admin: 10/17/24 22:09 Dose: Not Given Documented By: CTF Non-Admin Reason: Patient Refused Comments: had bm 10/17/24. Admin: 10/17/24 17:55 Dose: 10 gm Documented By: INDIGO Losartan Potassium (Losartan Potassium 25 Mg Tablet) 50 mg PO DAILY GERMANIA Stop: 11/16/24 11:59 Last Admin: 10/18/24 08:59 Dose: 50 mg Documented By: Admin: 10/17/24 13:14 Dose: 50 mg Documented By: INDIGO Morphine Sulfate (Morphine Sulf Inj 10 Mg/Ml Vial) 1 mg IVP Q4H PRN PRN Reason: Pain 4-6 Last Admin: 10/15/24 22:00 Dose: 1 mg Documented By: Admin: 10/15/24 08:21 Dose: 1 mg Documented By: Admin: 10/15/24 01:53 Dose: 1 mg Documented By: MARANDA Ondansetron HCl (Ondansetron Inj 2 Mg/Ml Inj 2 Ml) 4 mg IVP X1 ONE; Protocol Stop: 10/14/24 17:35 Last Admin: 10/14/24 18:08 Dose: 4 mg Documented By: JENNIE Ondansetron HCl (Ondansetron Inj 2 Mg/Ml Inj 2 Ml) 4 mg IVP Q6H PRN; Protocol PRN Reason: NAUSEA OR VOMITING Stop: 11/13/24 19:45 Last Admin: 10/15/24 16:27 Dose: 4 mg Documented By: Admin: 10/15/24 08:00 Dose: 4 mg Documented By: Admin: 10/14/24 23:12 Dose: 4 mg Documented By: MARANDA Polyethylene Glycol (Polyethylene Glycol 17 Gm Packet) 17 gm PO QDAY [place] Stop: 11/15/24 11:44 Last Admin: 10/18/24 09:02 Dose: Not Given Documented By: IGOR Non-Admin Reason: Patient Refused Admin: 10/17/24 09:17 Dose: 17 gm Documented By: Admin: 10/16/24 11:54 Dose: 17 gm Documented By: DRU Sennosides (Senna Tablet) 1 tab PO QDAY PRN; Protocol PRN Reason: constipation Stop: 11/13/24 19:45 Last Admin: 10/16/24 09:39 Dose: 1 tab Documented By: DRU Sennosides (Senna Tablet) 1 tab PO QDAY [place]ER[place]; Protocol Stop: 11/15/24 11:44 Sennosides (Senna Tablet) 1 tab PO QDAY GER[place]IA; Protocol Stop: 11/16/24 08:59 Last Admin: 10/18/24 09:02 Dose: Not Given Documented By: MARY LOU5 Non-Admin Reason: Patient Refused Admin: 10/17/24 09:17 Dose: 1 tab Documented By: INDIGO Sodium Bicarbonate (Sodium Bicarb Inj 8.4% Syr 50 Ml Syringe) 50 ml IV Q4HR PRN PRN Reason: For ph <= to 7.0 Stop: 11/13/24 22:24 Sodium Bicarbonate (Sodium Bicarb Inj 8.4% Syr 50 Ml Syringe) 50 ml IV Q4HR PRN PRN Reason: For ph <= to 7.0 Stop: 11/13/24 22:24 See above Consultations Consultation(s) initiated? (list below): Yes Consultation #1 (Physician, Specialty, Details): I spoke with plate roller Dr. Bustos. Discussed patients PMHx, HPI, ED course, exam findings, labs results. Advised the patient could be managed by hospitalist service. I will discuss case with hospitalist team. Time: 17:20 Diagnosis Most likely diagnosis given after review of the tests above:: DKA Admission Indicated Admission indicated?: not indicated Explain why admission is indicated or not indicated:: Signed out pending final disposition. Admission Request Was there a request for admission?: No Disposition Plan Disposition Plan: other (specify) (Signed out to Dr. Holcomb ) Critical Care Time Critical Care Time Critical Care Time: Yes Total Critical Care Time (min.): 35 Attestation: The high probability of sudden, clinically significant deterioration in the patient's condition required the highest level of my preparedness to intervene urgently. The services I provided to this patient were to treat and/or prevent clinically significant deterioration. Services included the following: chart data review, reviewing nursing notes and/or old charts, documentation time, solutions consultant collaboration regarding findings and treatment options, medication orders and management, direct patient care, vital sign assessments and ordering, interpreting and reviewing diagnostic studies and lab tests. Aggregate critical care time includes only time during which I was engaged in work directly related to the patient's care, as described above, whether at bedside or elsewhere in the Emergency Department. It did not include time spent performing other reported procedures or the services of residents, students, nurses or physician assistants. Discharge Plan Plan Patient Disposition: Admit Acute Care w/in Hospital Patient condition on transfer: Stable Problem List Clinical Impression: Acute pancreatitis
--- NOTE | 2024-10-14 16:14 | XR_ITS ---
Examination: CT chest with intravenous contrast CT abdomen with intravenous contrast CT pelvis with intravenous contrast 2-D coronal and sagittal reconstructions Time of exam: October 14, 2024, [address] abdomen and pelvis June 22, 2020 INDICATIONS: Epigastric lower chest pain radiating to the back with shortness of breath and vomiting today CTDI: vol (mGy) : 25.6 DLP: (mGycm): 1246 Technique: Multiple axial images of the chest, abdomen and pelvis with intravenous contrast, 3.0 mm slice thickness. Images obtained post intravenous injection Isovue 370 60 cc. 2-D sagittal and coronal reconstructions. Low dose protocols were performed. One or more of the following dose reduction techniques were used; automated exposure control, adjustment of the mA and/or KV according to patient size, use of iterative reconstruction technique. Findings: No thoracic aortic aneurysmal dilatation No pulmonary artery filling defects No paratracheal tracheobronchial or bronchopulmonary adenopathy No pneumonia or pulmonary edema or pleural disease No visualized liver or splenic lesion Hepatomegaly 24 cm Splenomegaly 13 cm No gallstones Edema around the head of the pancreas There is wall thickening involving the common bile duct Aorta is normal in size No renal or ureteral calculi, no hydronephrosis No bowel obstruction Normal appendix No diverticulitis Anteverted uterus Small bilateral ovarian follicular cysts, the largest right ovary 15 mm Urinary bladder intact L5-S1 3 mm calcified central lumbar disc Impression : No mediastinal lymphadenopathy. No thoracic aortic aneurysm dilatation No pulmonary artery emboli on this non-CTA study. No pneumonia or pulmonary edema Hepatosplenomegaly Acute pancreatitis Wall thickening involving the common bile duct, consider MRCP follow-up to confirm pancreatitis and excluded cholangitis Normal appendix. No bowel obstruction
[2024-10-14 16:33] LABS: Lactate (Lactic Acid) 2.0 mMol/L (0.4-2.0)
[2024-10-14 17:06] LABS: Beta Hydroxybutyrate 0.3 mmol/L (<0.6); Lipase 49 U/L (12-53); Procalcitonin 0.07 ng/ml (0.0-0.49)
[2024-10-14] MEDS: SODIUM CHLORIDE 0.9% 1000 ML 1,000 ML 999 ML IV ×2 (17:22→17:57)
[2024-10-14 17:23] LABS: HCG Qualitative,Urine Negative
[2024-10-14] MEDS: Magnesium Sulfate 4 GM Ivpb 4 GM/50 ML BAG IV (17:24)
--- NOTE | 2024-10-14 17:33 | PC.NURSE ---
PT TAKEN TO CT.
[2024-10-14] MEDS: INSULIN HUM REGULAR 1 UNIT/0.01 ML (PER UNIT) 10 UNIT SC (18:00)
[2024-10-14] MEDS: ONDANSETRON INJ 2 MG/ML INJ 2 ML 4 MG IVP ×2 (18:08→23:12)
[2024-10-14] MEDS: HYDROmorphone INJ 2 MG/ML VIAL 0.5 MG IVP (18:08)
[2024-10-14] MEDS: MG HYD/AL HYD/SIME (Maalox Reg) SUSP 30 ML UDC PO (18:08)
[2024-10-14] MEDS: FAMOTIDINE INJ 10 MG/ML VIAL 2 ML 20 MG IVP (18:09)
--- NOTE | 2024-10-14 18:11 | PD.EDADDENDU ---
Emergency Room Addendum Addendum Narrative: 1800: Care assumed from Dr. Edward (emergency physician). Past medical, surgical, social and family history reviewed. Vitals and home medications reviewed. Results and treatment plan discussed. They will assume the care of the patient at this time and will follow the patient, pending Chest/Abdomen/Pelvis CT. The following addendum documentation note is intended to reflect any pending information, findings, or radiology results not included in the patient?s initial chart by the previous shift scribe. RADIOLOGY Findings: No thoracic aortic aneurysmal dilatation No pulmonary artery filling defects No paratracheal tracheobronchial or bronchopulmonary adenopathy No pneumonia or pulmonary edema or pleural disease No visualized liver or splenic lesion Hepatomegaly 24 cm Splenomegaly 13 cm No gallstones Edema around the head of the pancreas There is wall thickening involving the common bile duct Aorta is normal in size No renal or ureteral calculi, no hydronephrosis No bowel obstruction Normal appendix No diverticulitis Anteverted uterus Small bilateral ovarian follicular cysts, the largest right ovary 15 mm Urinary bladder intact L5-S1 3 mm calcified central lumbar disc Impression : No mediastinal lymphadenopathy. No thoracic aortic aneurysm dilatation No pulmonary artery emboli on this non-CTA study. No pneumonia or pulmonary edema Hepatosplenomegaly Acute pancreatitis Wall thickening involving the common bile duct, consider MRCP follow-up to confirm pancreatitis and excluded cholangitis Normal appendix. No bowel obstruction 1915: Discussed with Dr. Arroyo's resident for admission. Reviewed the patient?s HPI, PMHx, lab and/or radiology results. Discussed treatment plan. Will consult an admission to the hospitalist.
[2024-10-14 18:22] LABS: Beta Hydroxybutyrate 0.4 mmol/L (<0.6)
[2024-10-14] MEDS: HYDROmorphone INJ 2 MG/ML VIAL 1 MG IVP ×2 (19:42→22:20)
--- NOTE | 2024-10-14 20:21 | PD.RESHP ---
Documentation for date of: 10/14/24 [facility] History of Present Illness History of present illness: Chely Gonzalez is a 34-year-old F with a PMH of HTN and diabetes who presents today with abdominal pain. She reports that the abdominal pain yesterday and that it is localized mostly around the chest/epigastric region. The pain is characterized as constant with fluctuating sharp pangs that radiate to the back. She says that the pain worsens when she lays on her back and improves when laying on her side. She also endorses vomiting with the most recent episode occurring this morning at 6 AM (did not remember what vomitus looked like) and her last BM was yesterday producing normal stools. Other current symptoms she complains of include headache, chest pain, and shortness of breath. She endorses having one previous episode of similar pain in which she ended up being hospitalized for acute pancreatitis. On a scale from 1-10, she rates her current pain to be a 10/10. In the ED, vitals showed: BP 148/96 HR 101 RR 18 Temp 98.5 SpO2 98% on room air ED Course: CBC showed high WBC 17.1 with neutrophilic predominance but no other significant findings. CMP showed low carbon dioxide 17.2, high anion gap 19, high blood glucose 290, low magnesium 1.3, slightly high alkaline phosphatase 121, and high LDH 380. UA was turbid and showed 1+ protein, 4+ glucose, 2+ ketones, and high urine squamous epithelial cells 14. Patient was given 1 L IV NS bolus x2, IV magnesium sulfate 4 gm x1, 10 units regular insulin x1, po simethicone, IV Dilaudid 1 mg x1, IV famotidine x1, IV Zofran x1 and started on IV Dilaudid 0.5 mg q30M prn. On Imaging: CXR was unremarkable. CTAP was significant for acute pancreatitis with wall thickening involving the common bile duct (radiology recommends MRCP follow-up to confirm pancreatitis and exclude cholangitis) and hepatosplenomegaly. Patient was admitted for the work-up and management of suspected acute pancreatitis (with possibility of cholangitis) and possible DKA. Review of Systems Review of Systems Narrative Review of Systems: General: Denies fevers or chills HEENT: Endorses headache. Denies congestion or sore throat Heart: Endorses chest pain. Denies palpitations Lungs: Endorses shortness of breath. Denies cough Abdomen: Endorses epigastric abdominal pain radiating to the back. Endorses nausea and vomiting. Denies constipation, diarrhea, or blood in stool Genitourinary: Denies frequency, urgency, dysuria, or hematuria Neurology: Denies any changes in vision, weakness or difficulty speaking Review of systems otherwise negative except what is mentioned above. Past Medical History Past Medical History NEUROLOGIC: Negative Neurological Disorders or Seizures CARDIAC: Positive Hypertension; Negative Cardiac Disorders, Atrial Fibrillation, Angina, Atherosclerotic Heart Disease, Aneurysm, Congestive Heart Failure or Hypotension RESPIRATORY: Negative Chronic Obstructive Pulmonary Disease (COPD) or Asthma GASTROINTESTINAL: Positive Obesity; Negative Gastrointestinal Disorders or Hepatitis GENITOURINARY: Positive Genitourinary Disorders and Kidney Stones (past hx); Negative Renal Disease REPRODUCTIVE: Positive Previous Pregnancies; Negative Breast Cancer, Endometriosis, Genital Herpes, Gonorrhea, Pelvic Inflammatory Disease, Syphilis or Uterine Prolapse MUSCULOSKELETAL: Negative Musculoskeletal Disorders ENDOCRINE: Positive Endocrine Disorders; Negative Diabetes Mellitus Type 1 or Diabetes Mellitus Type 2 HEMATOLOGIC: Negative Blood Disorders or Sickle Cell Disease OTHER HISTORY: Positive Hospitalization; Negative Autoimmune Disease, Down Syndrome, Developmental Delay, Shingles, Falls, Blood Transfusions, Blood Transfusion Reaction, Anesthesia Reactions, Organ Transplant, Chemotherapy, Radiation Therapy, Hyperbaric Therapy, MRSA, VRSA, Vancomycin-Resistant Enterococci, Human Immunodeficiency Virus (HIV), Chicken Pox, Measles, Mumps, Rubella (French Measles), Pertussis, Clostridium Difficile, Cancer or Breast Cancer Family History FAMILY HISTORY: Positive Family Cardiac Disorders; Negative Family Psychiatric Problems, Family Respiratory Disorders, Family Gastrointestinal Problems, Family Cancer, Family Surgery or Family Anesthesia Reaction Surgical History SURGICAL: Positive Section; Negative Endocrine Surgery, Ear Surgery, Abdominal Surgery, Nephrectomy, Joint Replacement or Organ Transplant Social History SMOKING STATUS: Never smoker SECOND HAND EXPOSURE: No SUBSTANCE USE: does not use Past Medical History Comments PMH COMMENT: PMH: HTN, T2DM PSH: neck surgery for spreading birthmark, 3 C-sections Medications: losartan Allergies: penicillin (causes heart issues) FH: dad has history of diabetes, history of triple-bypass procedure, and pacemaker placement, mom had a rare cancer SH: lives in [place] in house with partner and 3 children, does not drink, smoke, or use recreational drugs Exam Vital Signs Temp Pulse Resp BP Pulse Ox O2 Del Method 98.0 F 96 17 126/87 H 98 Room Air 10/14/24 18:32 10/14/24 18:32 10/14/24 18:32 10/14/24 18:32 10/14/24 18:32 10/14/24 18:32 Narrative Exam Physical Exam: General: Acute distress and seemingly in pain. Alert and oriented x3. Skin: Warm, dry, intact, no obvious rash. Head: Normocephalic, atraumatic. Eye: Normal conjunctiva, PERRL. Throat: Oral mucosa moist. No obvious lesions in oropharynx. Cardiovascular: Slightly tachycardic. Normal rhythm, no murmur, +S1/S2. Respiratory: Lungs are clear to auscultation, respirations unlabored, no crackles, no wheezing. Gastrointestinal: Tenderness to palpation of the epigastrium. Guarding. Soft, non-distended. No rebound tenderness. Extremities: No edema, no cyanosis, no clubbing. 2+ radial pulse bilaterally, 2+ posterior tibial pulse bilaterally. Neuro: No focal deficits observed. Conversant, moving all extremities. No overt cerebellar signs/incoordination. Psychiatric: Cooperative, appropriate affect. Results: Labs 10/14/24 20:40 10/14/24 20:40 Labs: Short CBC 10/14/24 10/14/24 Range/Units 12:12 12:59 WBC 17.1 H Cancelled (3.6-11.0) Thou/mm3 Hgb 14.6 Cancelled (12.0-16.0) g/dL Hct 38.9 Cancelled (36.0-46.0) % Plt Count 234 Cancelled (140-440) Thou/mm3 BMP 10/14/24 12:59 Sodium 138 Potassium 4.5 Chloride 102 Carbon Dioxide 17.2 L BUN 8 L Creatinine 0.9 Glucose 290 H Calcium 9.3 Cardiac Enzymes 10/14/24 Range/Units 12:59 Troponin I < 0.002 (0.0-0.045) ng/mL Liver Function 10/14/24 Range/Units 12:59 Total Bilirubin 0.6 (0.3-1.2) mg/dL AST 30 (0-34) U/L ALT 20 (10-49) U/L Alkaline Phosphatase 121 H (46-116) U/L Albumin 4.6 (3.5-5.0) gm/dL Urine 10/14/24 Range/Units 14:35 Urine Color Yellow (Lt Yel-Yel) Urine Clarity Turbid A (Clear/Hazy) Urine pH 5.5 (5.0-7.0) Ur Specific [place] 1.031 (1.001-1.035) Urine Protein 1+ A (Neg - Trace) Urine Glucose (UA) 4+ A (Negative) Quality Measures Quality Measures none Medications Home Medications and Allergies Home Medications ?Medication ?Instructions ?Recorded ?Confirmed ?Type labetalol 200 mg tablet 200 mg PO BID 03/10/22 03/10/22 History vit no.95-ferrous 1 tab PO DAILY 03/10/22 03/10/22 History fumarate 28 mg-folic acid 800 mcg tablet () Allergies Allergy/AdvReac Type Severity Reaction Status Date / Time Penicillins Allergy Severe CHEST PAIN Verified 10/14/24 12:00 Visit Medications Acetaminophen (Acetaminophen 325 Mg Tablet) 650 mg PO Q6H PRN PRN Reason: PAIN SCALE 1-3 (mild Stop: 11/13/24 19:45 Dextrose (Dextrose 50%-Water Inj 50 Ml Syringe) 25 ml IV Q15MIN PRN PRN Reason: BG 50-70 responsive npo pt Stop: 11/13/24 19:59 Dextrose (Dextrose 50%-Water Inj 50 Ml Syringe) 50 ml IV Q15MIN PRN PRN Reason: BG <50 OR BG <70 & pt unresponsive Stop: 11/13/24 19:59 Glucagon (Glucagon Inj 1 Mg Vial) 1 mg IM Q15MIN PRN PRN Reason: BG <70, and no IV access Heparin Sodium (Porcine) (Heparin Sod Inj 5000 Unit/Ml Vial) 5,000 unit SC Q12HR [place] Stop: 10/28/24 20:59 Hydromorphone HCl (Hydromorphone Inj 2 Mg/Ml Vial) 1 mg IVP Q4H PRN PRN Reason: Pain 7-10 Stop: 10/19/24 19:56 Lactated Ringer's (Lactated Ringers) 1,000 mls @ 200 mls/hr IV .Q5H [place] Stop: 11/13/24 19:59 Insulin Human Lispro (Insulin Lispro (Admelog) 1 Unit/0.01 Ml Unit) 0 unit SC Q6HR [place]; Protocol Stop: 11/13/24 19:59 Morphine Sulfate (Morphine Sulf Inj 10 Mg/Ml Vial) 1 mg IVP Q4H PRN PRN Reason: Pain 4-6 Ondansetron HCl (Ondansetron Inj 2 Mg/Ml Inj 2 Ml) 4 mg IVP Q6H PRN; Protocol PRN Reason: NAUSEA OR VOMITING Stop: 11/13/24 19:45 Sennosides (Senna Tablet) 1 tab PO QDAY PRN; Protocol PRN Reason: constipation Stop: 11/13/24 19:45 Discontinued Medications Al Hydrox/Mg Hydrox/Simethicone (Mg Hyd/Al Hyd/Carlie (Maalox Reg) Susp 30 Ml Udc) 30 ml PO X1 ONE Stop: 10/14/24 17:35 Last Admin: 10/14/24 18:08 Dose: 30 ml Famotidine (Famotidine Inj 10 Mg/Ml Vial 2 Ml) 20 mg IVP X1 ONE Stop: 10/14/24 17:35 Last Admin: 10/14/24 18:09 Dose: 20 mg Hydromorphone HCl (Hydromorphone Inj 2 Mg/Ml Vial) 0.5 mg IVP Q30M PRN PRN Reason: PAIN Stop: 10/15/24 17:44 Last Admin: 10/14/24 18:08 Dose: 0.5 mg Hydromorphone HCl (Hydromorphone Inj 2 Mg/Ml Vial) 1 mg IVP X1 ONE Stop: 10/14/24 19:30 Last Admin: 10/14/24 19:42 Dose: 1 mg Magnesium Sulfate (Magnesium Sulfate Ivpb) 4 gm in 50 mls @ 12.5 mls/hr IV X1 ONE Stop: 10/14/24 20:03 Last Admin: 10/14/24 17:24 Dose: 12.5 mls/hr Sodium Chloride (Ns) 1,000 mls @ 999 mls/hr IV .Q1H1M ONE Stop: 10/14/24 17:12 Last Infusion: 10/14/24 19:25 Dose: Infused Insulin Human Regular (Myxredlin) 100 unit in 100 mls @ 10.274 mls/hr IV .Q9H44M PRN; Protocol PRN Reason: PER PROTOCOL Stop: 11/13/24 16:59 Sodium Chloride (Ns) 1,000 mls @ 999 mls/hr IV .Q1H1M ONE Stop: 10/14/24 18:20 Last Admin: 10/14/24 17:57 Dose: 999 mls/hr Insulin Human Regular (Insulin Hum Regular 1 Unit/0.01 Ml (Per Unit)) 10 unit SC X1 ONE Stop: 10/14/24 17:23 Last Admin: 10/14/24 18:00 Dose: 10 unit Ondansetron HCl (Ondansetron Inj 2 Mg/Ml Inj 2 Ml) 4 mg IVP X1 ONE; Protocol Stop: 10/14/24 17:35 Last Admin: 10/14/24 18:08 Dose: 4 mg Assessment & Plan Assessment Chely Gonzalez is a 34-year-old F with a PMH of HTN and diabetes who presents today with abdominal pain. Patient was admitted for the work-up and management of suspected acute pancreatitis (with possibility of cholangitis) and possible DKA. #Acute pancreatitis #Possible cholangitis CTAP was significant for acute pancreatitis with wall thickening involving the common bile duct (cholangitis cannot be excluded) and hepatosplenomegaly. Labs were significant for an elevated WBC of 17.1 but there is less suspicion for cholangitis at this moment in time due to lack of jaundice or fever ([place]). Patient has had a prior episode of similar presentation in which she was hospitalized for acute pancreatitis (triglyceride level >1000). s/p 1 L IV NS bolus x2 given in the ED -Started patient on IV Dilaudid 1 mg q4H prn and IV morphine 1mg q4H prn for pain management -Started 1 L IV LR maintenance fluids for adequate hydration -Placed patient on NPO and will advance diet as tolerated -Ordered lipid panel to assess for hypertriglyceridemia as patient as significant past history -Consider starting a fibrate or other lipid-lowering class of medications if current triglyceride levels exceed 500 #Possible DKA #T2DM Upon admission, patient had a high blood glucose of 290 and high LDH of 380 with UA showing 4+ glucose and 2+ ketones. She also had an elevated anion gap of 19 but a normal beta-hydroxybutyrate of 0.4. -Started 1 L IV LR maintenance fluids for adequate hydration -Started insulin sliding scale -Ordered hemoglobin A1c to assess if diabetes is being properly managed -Ordered continuous bedside blood glucose monitoring q6HR #Hypomagnesemia Upon admission, patient had a low magnesium of 1.3. -Replete as necessary Hospital Management: Disposition: undergoing work-up and management of suspected acute pancreatitis and possible DKA Fluids: 1 L LR maintenance fluids Diet: NPO (advance as tolerated) Lines: none DVT Prophylaxis: heparin gtt [place]: not in place CODE STATUS: Full Code I have examined the patient and conferred with my attending, Dr. Arroyo, and my senior resident, Dr. Huitron, regarding them. [place] DO PGY-1 Internal Medicine Attending Provider Attestation/Addendum After examination of the patient and review of the clinical data I feel that this patient needs admission to the hospital for further treatment/evaluation. I have discussed and was present for the essential components of the history, physical examination, diagnosis, and treatment plan with the resident. I agree with the patient's care as documented by the resident and amended herein by me. Fili Arroyo DO. Although this document has been carefully reviewed, there may still be some phonetic and other typographical errors. These errors are purely grammatical due to imperfections in the software program and should not be construed in any way to compromise the substance of the patient's medical care during this visit. Patient seen and evaluated in the ED patient is a 34-year-old female with significant past medical history of type 2 diabetes not on any medication at this time, pancreatitis (hypertriglyceridemia induced 2020), and renal stones presented to the ED for 1 day of severe 10/10 epigastric and back pain. Pain is very severe with palpation to the epigastric region. Patient also endorses nausea and vomiting earlier this morning, last BM yesterday evening which was normal. Patient denies fever or chills, palpitations, shortness of breath or urinary dysfunction. In the ED, BP 148/96 mmHg, pulse 101, rest of the vitals unremarkable, the patient was afebrile. Significant labs included a WBC of 17 which did downtrend, anion gap initially at 19 which is also down trended with fluids to 13, bicarb of 17 which is also improved, lactic acid, procalcitonin and beta hydroxybutyrate unremarkable, T. bili normal and no jaundice appreciated on physical examination.. Chest x-ray unremarkable, EKG demonstrating mild sinus tachycardia. CT abdomen pelvis demonstrating acute pancreatitis and wall thickening around the CBD however no stones were seen. At this time, will admit patient to telemetry for acute pancreatitis however we are pending a lipid panel considering the patient does have a history of hypertriglyceridemia induced pancreatitis, patient may be upgraded to the ICU if her triglycerides are severely elevated. Will continue fluids for now and pain control as well as blood glucose control. Patient is stable at present.
[2024-10-14 20:55] LABS: Basophils # (Auto) 0.0 Thou/mm3 (0.0-0.2); Basophils % (Auto) 0 % (0-2.5); Eosinophils # (Auto) 0.2 Thou/mm3 (0.0-0.5); Eosinophils % (Auto) 2 % (0-10); Hematocrit 34.9 % (36.0-46.0); Hemoglobin 12.1 g/dL (12.0-16.0); Immature Granulocytes Auto 0.05 Thou/mm3 (0.00-0.00); Lymphocytes # (Auto) 2.3 Thou/mm3 (1.0-4.8); Lymphocytes % (Auto) 18 % (10-50); Mean Corpuscular HGB Conc 34.7 g/dl (31.0-37.0); Mean Corpuscular Hemoglobin 30.4 pg (25.0-35.0); Mean Corpuscular Volume 88 fL (80-100); Monocytes # (Auto) 0.8 Thou/mm3 (0.0-0.8); Monocytes % (Auto) 6 % (0-12); Neutrophils # (Auto) 9.7 Thou/mm3 (1.8-7.7); Neutrophils % (Auto) 74 % (37-80); Nucleated Red Blood Cell # 0.00 Thou/mm3 (0.00-0.00); Nucleated Red Blood Cell % 0 /100 WBC (0); Platelet Count 192 Thou/mm3 (140-440); RDW Standard Deviation 40.2 fL (36.4-46.3); Red Blood Count 3.98 Miln/mm3 (4.00-5.20); White Blood Count 13.2 Thou/mm3 (3.6-11.0)
[2024-10-14] MEDS: INSULIN LISPRO (AdmeLOG) 1 UNIT/0.01 ML UNIT SC (21:19)
[2024-10-14] MEDS: HEPARIN SOD INJ 5000 UNIT/ML VIAL SC (21:21)
[2024-10-14 21:28] LABS: Alanine Aminotransferase 12 U/L (10-49); Albumin, Serum 3.8 gm/dL (3.5-5.0); Albumin/Globulin Ratio 1.7 (1.2-2.2); Alkaline Phosphatase 100 U/L (46-116); Anion Gap 13 (7-16); Aspartate Amino Transferase 12 U/L (0-34); BUN/Creatinine Ratio 7 Ratio (12-20); Bilirubin,Total 0.4 mg/dL (0.3-1.2); Blood Urea Nitrogen < 5 mg/dL (9-23); Calcium 8.1 mg/dL (8.3-10.6); Calcium (Corrected) 8.3 mg/dL (8.5-10.1); Carbon Dioxide 19.4 mMol/L (20.0-31.0); Cardiac Risk Estimate 11.5 RATIO (3.7-5.6); Chloride 107 mMol/L (98-107); Cholesterol 218 mg/dL (132-200); Creatinine (Component) 0.7 mg/dL (0.6-1.3); Estimated Creatinine Clearance 139.7 mL/min (>60); Globulin 2.3 gm/dL (2.3-3.5); Glucose 205 mg/dL (74-106); HDL Cholesterol 19 mg/dL (40-60); Osmolality,Calculated 280 (275-295); Potassium 3.8 mMol/L (3.4-5.1); Sodium 139 mMol/L (136-145); Total Protein 6.1 gm/dL (5.7-8.2); Triglycerides 1428 mg/dL (30-150); eGFR > 60 See Note
[2024-10-14] MEDS: RINGERS LACTATED 1000 ML 1,000 ML 200 ML IV (21:40)
--- NOTE | 2024-10-14 21:49 | PD.RESCONSUL ---
HPI Data of Consult Requesting Physician: Pete Arroyo DO Admitting Provider: Pete Arroyo DO Attending Provider: Pete Arroyo DO Primary Care Provider: Lissette Portillo PA-C Consult Narrative Reason for consult: TG-induced pancreatitis History of present illness: Patient is a 34 years old female with a PMH of HTN and type 2 diabetes mellitus who presented today to the ED with abdominal pain and vomiting. She reports that the abdominal pain yesterday and that it is localized mostly around the chest/epigastric region. The pain is characterized as constant with fluctuating sharp pangs that radiate to the back. She says that the pain worsens when she lays on her back and improves when laying on her side. She also endorses vomiting with the most recent episode occurring this morning at 6 AM, her last BM was yesterday producing normal stools. Other current symptoms she complains of include headache, chest pain, and shortness of breath. She endorses having one previous episode of similar pain in which she ended up being hospitalized for acute pancreatitis. On a scale from 1-10, she rates her current pain to be a 10/10. CTAP was significant for acute pancreatitis with wall thickening involving the common bile duct (radiology recommends MRCP follow-up to confirm pancreatitis and exclude cholangitis) and hepatosplenomegaly. Patient was given 1 L IV NS bolus x2, IV magnesium sulfate 4 gm x1, 10 units regular insulin x1, po simethicone, IV Dilaudid 1 mg x1, IV famotidine x1, IV Zofran x1. Patient was admitted for the work-up and management of suspected acute pancreatitis. Her lipid panel after admission showed TG 1428 therefore she was upgraded to ICU due to TG-induced pancreatitis for insulin drip. cc:: cc: Pete Arroyo DO Review of Systems Review of Systems Systems Reviewed: All systems reviewed, normal except as documented Exam Vital Signs Temp Pulse Resp BP Pulse Ox O2 Del Method 98.8 F 88 17 133/89 H 98 Room Air 10/14/24 20:35 10/14/24 20:35 10/14/24 20:35 10/14/24 20:35 10/14/24 20:35 10/14/24 20:35 Narrative Exam Gen: Well-developed and well-nourished female in moderate distress. HEENT: NCAT, PERRLA, EOMI, MMM, anicteric conjunctivae. CVS: normal S1 and S2. Regular tachycardia. No M/R/G. Resp: CTA B/L. No rhonchi, rales, crackles or wheezing. Abd: soft, obese, tender in LUQ and epigastrium, non-distended. BS+ in all 4 quadrants. MSK: Good ROM in BUE & BLE. No edema or rash. Neuro: CN II-XII grossly intact. Strength 5/5 in BUE & BLE. Alert and oriented x3. Results Labs 10/14/24 20:40 10/14/24 20:40 Labs: Short CBC 10/14/24 10/14/24 10/14/24 Range/Units 12:12 12:59 20:40 WBC 17.1 H Cancelled 13.2 H (3.6-11.0) Thou/mm3 Hgb 14.6 Cancelled 12.1 D (12.0-16.0) g/dL Hct 38.9 Cancelled 34.9 L (36.0-46.0) % Plt Count 234 Cancelled 192 D (140-440) Thou/mm3 BMP 10/14/24 10/14/24 12:59 20:40 Sodium 138 139 Potassium 4.5 3.8 D Chloride 102 107 Carbon Dioxide 17.2 L 19.4 L BUN 8 L < 5 L Creatinine 0.9 0.7 Glucose 290 H 205 H D Calcium 9.3 8.1 L Cardiac Enzymes 10/14/24 Range/Units 12:59 Troponin I < 0.002 (0.0-0.045) ng/mL Liver Function 10/14/24 10/14/24 Range/Units 12:59 20:40 Total Bilirubin 0.6 0.4 (0.3-1.2) mg/dL AST 30 12 (0-34) U/L ALT 20 12 (10-49) U/L Alkaline Phosphatase 121 H 100 D (46-116) U/L Albumin 4.6 3.8 D (3.5-5.0) gm/dL Urine 10/14/24 Range/Units 14:35 Urine Color Yellow (Lt Yel-Yel) Urine Clarity Turbid A (Clear/Hazy) Urine pH 5.5 (5.0-7.0) Ur Specific [place] 1.031 (1.001-1.035) Urine Protein 1+ A (Neg - Trace) Urine Glucose (UA) 4+ A (Negative) Quality Measures Quality Measures VTE prophylaxis Medications Home Medications and Allergies Home Medications ?Medication ?Instructions ?Recorded ?Confirmed ?Type labetalol 200 mg tablet 200 mg PO BID 03/10/22 03/10/22 History vit no.95-ferrous 1 tab PO DAILY 03/10/22 03/10/22 History fumarate 28 mg-folic acid 800 mcg tablet () Allergies Allergy/AdvReac Type Severity Reaction Status Date / Time Penicillins Allergy Severe CHEST PAIN Verified 10/14/24 12:00 Visit Medications Acetaminophen (Acetaminophen 325 Mg Tablet) 650 mg PO Q6H PRN PRN Reason: PAIN SCALE 1-3 (mild Stop: 11/13/24 19:45 Dextrose (Dextrose 50%-Water Inj 50 Ml Syringe) 25 ml IV Q15MIN PRN PRN Reason: Blood sugar between 50- 69 mg/dL Stop: 11/13/24 21:39 Dextrose (Dextrose 50%-Water Inj 50 Ml Syringe) 50 ml IV Q15MIN PRN PRN Reason: Blood sugar less than 50 mg/dL Stop: 11/13/24 21:39 Glucagon (Glucagon Inj 1 Mg Vial) 1 mg IM QDAY PRN PRN Reason: Blood sugar less than 70 mg/dL Stop: 11/13/24 21:39 Heparin Sodium (Porcine) (Heparin Sod Inj 5000 Unit/Ml Vial) 5,000 unit SC Q12HR [facility] Stop: 10/28/24 20:59 Last Admin: 10/14/24 21:21 Dose: 5,000 unit Hydromorphone HCl (Hydromorphone Inj 2 Mg/Ml Vial) 1 mg IVP Q4H PRN PRN Reason: Pain 7-10 Stop: 10/19/24 19:56 Insulin Human Regular (Myxredlin) 100 unit in 100 mls @ 10.274 mls/hr IV .Q9H44M [facility] Stop: 11/13/24 21:44 Dextrose/Lactated Ringer's (D5-Lr) 1,000 mls @ 150 mls/hr IV .Q6H40M [facility] Stop: 11/13/24 21:44 Morphine Sulfate (Morphine Sulf Inj 10 Mg/Ml Vial) 1 mg IVP Q4H PRN PRN Reason: Pain 4-6 Ondansetron HCl (Ondansetron Inj 2 Mg/Ml Inj 2 Ml) 4 mg IVP Q6H PRN; Protocol PRN Reason: NAUSEA OR VOMITING Stop: 11/13/24 19:45 Sennosides (Senna Tablet) 1 tab PO QDAY PRN; Protocol PRN Reason: constipation Stop: 11/13/24 19:45 Discontinued Medications Al Hydrox/Mg Hydrox/Simethicone (Mg Hyd/Al Hyd/Carlie (Maalox Reg) Susp 30 Ml Udc) 30 ml PO X1 ONE Stop: 10/14/24 17:35 Last Admin: 10/14/24 18:08 Dose: 30 ml Dextrose (Dextrose 50%-Water Inj 50 Ml Syringe) 25 ml IV Q15MIN PRN PRN Reason: BG 50-70 responsive npo pt Stop: 11/13/24 19:59 Dextrose (Dextrose 50%-Water Inj 50 Ml Syringe) 50 ml IV Q15MIN PRN PRN Reason: BG <50 OR BG <70 & pt unresponsive Stop: 11/13/24 19:59 Famotidine (Famotidine Inj 10 Mg/Ml Vial 2 Ml) 20 mg IVP X1 ONE Stop: 10/14/24 17:35 Last Admin: 10/14/24 18:09 Dose: 20 mg Glucagon (Glucagon Inj 1 Mg Vial) 1 mg IM Q15MIN PRN PRN Reason: BG <70, and no IV access Hydromorphone HCl (Hydromorphone Inj 2 Mg/Ml Vial) 0.5 mg IVP Q30M PRN PRN Reason: PAIN Stop: 10/15/24 17:44 Last Admin: 10/14/24 18:08 Dose: 0.5 mg Hydromorphone HCl (Hydromorphone Inj 2 Mg/Ml Vial) 1 mg IVP X1 ONE Stop: 10/14/24 19:30 Last Admin: 10/14/24 19:42 Dose: 1 mg Magnesium Sulfate (Magnesium Sulfate Ivpb) 4 gm in 50 mls @ 12.5 mls/hr IV X1 ONE Stop: 10/14/24 20:03 Last Admin: 10/14/24 17:24 Dose: 12.5 mls/hr Sodium Chloride (Ns) 1,000 mls @ 999 mls/hr IV .Q1H1M ONE Stop: 10/14/24 17:12 Last Infusion: 10/14/24 19:25 Dose: Infused Insulin Human Regular (Myxredlin) 100 unit in 100 mls @ 10.274 mls/hr IV .Q9H44M PRN; Protocol PRN Reason: PER PROTOCOL Stop: 11/13/24 16:59 Sodium Chloride (Ns) 1,000 mls @ 999 mls/hr IV .Q1H1M ONE Stop: 10/14/24 18:20 Last Admin: 10/14/24 17:57 Dose: 999 mls/hr Lactated Ringer's (Lactated Ringers) 1,000 mls @ 200 mls/hr IV .Q5H [facility] Stop: 11/13/24 19:59 Last Admin: 10/14/24 21:40 Dose: 200 mls/hr Insulin Human Lispro (Insulin Lispro (Admelog) 1 Unit/0.01 Ml Unit) 0 unit SC Q6HR [facility]; Protocol Stop: 11/13/24 19:59 Last Admin: 10/14/24 21:19 Dose: 2 unit Insulin Human Regular (Insulin Hum Regular 1 Unit/0.01 Ml (Per Unit)) 10 unit SC X1 ONE Stop: 10/14/24 17:23 Last Admin: 10/14/24 18:00 Dose: 10 unit Ondansetron HCl (Ondansetron Inj 2 Mg/Ml Inj 2 Ml) 4 mg IVP X1 ONE; Protocol Stop: 10/14/24 17:35 Last Admin: 10/14/24 18:08 Dose: 4 mg Assessment & Plan Plan Patient is a 34 years old female with a PMH of HTN and type 2 diabetes mellitus who presented today to the ED with abdominal pain and vomiting, was admitted for the work-up and management of acute pancreatitis and was upgraded to ICU for insulin drip due to TG-induced pancreatitis. Neuro: No active problem. Cardiovascular: #Sinus tachycardia. Likely due to pain, EKG showed sinus tachycardia. Plan: - pain management as below. - continuous telemonitor. Respiratory: No active problem. Gastrointestinal: #Hypertriglyceridemia-induced acute pancreatitis. Patient presented with abdominal pain and vomiting, and prior history of admission due to pancreatitis, CTAP showed acute pancreatitis with wall thickening involving the common bile duct (radiology recommends MRCP follow-up to confirm pancreatitis and exclude cholangitis) and hepatosplenomegaly. Labs showed Lipase 49, TG 1428, LFTs and t.bili are WNL. Patient does not have any Charcot triad symptoms other than RUQ pain which appears to be referred pain from epigastrium, at this moment low suspicion for cholangitis. Plan: -Started patient on IV Dilaudid 1 mg q4H prn and IV morphine 1mg q4H prn for pain management per scale. -Started on insulin drip 0.1 unit/kg/hr. -Started on D5LR @ 150cc/hr with 10 mEq of potassium. -Placed patient on NPO and will advance diet as tolerated. -Consider starting a fibrate or other lipid-lowering class of medications. -Consider surgical consult and MRCP if suspicion for cholangitis. -Ordered continuous bedside blood glucose monitoring q1HR. -Renal panel Q4H. Renal: No active problem. Endocrine: #Type 2 diabetes mellitus. #Possible DKA. Upon admission, patient had a high blood glucose of 290 and high LDH of 380 with UA showing 4+ glucose and 2+ ketones. She also had an elevated anion gap of 19 but a normal beta-hydroxybutyrate of 0.4. Patient stated that her diabetes has resolved and her PCP took off her DM medications. Plan: -Started on insulin drip 0.1 unit/kg/hr. -Started on D5LR @ 150cc/hr with 10 mEq of potassium. -Ordered hemoglobin A1c. -VBG ordered. -Ordered continuous bedside blood glucose monitoring q1HR. -Renal panel Q4H. Infectious Disease: No active problem. Hematology/Oncology: #Leukocytosis. On admission to the ED WBCs 17.1, repeat showed 13.2, no fever or chills, pro-marquez is WNL. Likely reactive in setting of acute pancreatitis. Plan: - monitor with daily labs. Diet: NPO. DVT prophylaxis: heparin. GI prophylaxis: none. Lines: peripheral x2. [place]: not in place. Code status: full code. Disposition: ICU. Plan of care discussed with attending Dr. Arroyo. Magdaleno Whalen MD, PGY 3. Disclaimer: This note was dictated by speech recognition. Minor errors in table games floor supervisor may be present due to voice recognition software. Attending Provider Attestation/Addendum I have discussed and was present for the essential components of the history, physical examination, diagnosis, and treatment plan with the resident. I agree with the patient's care as documented by the resident and amended herein by me. Fili Arroyo DO. Although this document has been carefully reviewed, there may still be some phonetic and other typographical errors. These errors are purely grammatical due to imperfections in the software program and should not be construed in any way to compromise the substance of the patient's medical care during this visit. In addition to original H&P, lipid panel did result in a triglyceride level of 1428, at this time we will upgrade patient to the ICU and start insulin drip. Will start at 0.1 units/kg/h with every hour Accu-Cheks and q4h BMP. Potassium 3.8 prior to start. D5 LR will also be added, will adjust rate according to blood glucose levels, will attempt to keep blood glucose between 150 and 200. Will stop insulin drip once triglyceride levels are below 500. Triglyceride levels q12h. Will continue to monitor closely, patient stable at present
--- NOTE | 2024-10-14 21:58 | PC.NURSE ---
Patient received to Tele room 279 at 2135 transfer orders placed for transfer to ICU at 2149 pt and belongings moved to 253 via wheelchair.
[2024-10-14] MEDS: INSULIN REG 100 UNITS/100 ML 100 UNIT/100 ML BAG 10.274 UNIT IV (22:15)
[2024-10-14] MEDS: KCL 20 mEq/L in D5-LR 20 MEQ/1,000 ML BAG 250 MEQ IV (22:44)
[2024-10-14 22:46] LABS: Base Excess, Venous -3 (-3-3); O2 Saturation, Venous 97 % (96-97); PCO2, Venous 38 mmHg (36-56); PO2, Venous 83 mmHg (15-58); pH, Venous 7.37 (7.33-7.66)
[2024-10-14 22:50] LABS: Beta Hydroxybutyrate 0.3 mmol/L (<0.6)
[2024-10-14 23:04] LABS: Albumin, Serum 3.7 gm/dL (3.5-5.0); Anion Gap 11 (7-16); BUN/Creatinine Ratio 12 Ratio (12-20); Blood Urea Nitrogen 7 mg/dL (9-23); Calcium 8.0 mg/dL (8.3-10.6); Calcium (Corrected) 8.2 mg/dL (8.5-10.1); Carbon Dioxide 22.3 mMol/L (20.0-31.0); Chloride 106 mMol/L (98-107); Creatinine (Component) 0.6 mg/dL (0.6-1.3); Estimated Creatinine Clearance 162.9 mL/min (>60); Glucose 229 mg/dL (74-106); Magnesium 1.8 mg/dL (1.6-2.6); Osmolality,Calculated 282 (275-295); Phosphorous 1.8 mg/dL (2.4-5.1); Potassium 3.7 mMol/L (3.4-5.1); Sodium 139 mMol/L (136-145); eGFR > 60 See Note
[2024-10-14] MEDS: RINGERS LACTATED 1000 ML 1,000 ML 250 ML IV (23:14)
[2024-10-15] VITALS (37 sets, daily range): BP systolic 107–139; BP diastolic 69–97; PULSE 68–108; RESP 0–52; TEMP 36.2–37.1; O2SAT 91–99; BMI 37.9; BMI 37.7
[2024-10-15] MEDS: MORPHINE SULF INJ 10 MG/ML VIAL IVP ×3 (01:53→22:00)
[2024-10-15 02:41] LABS: Albumin, Serum 3.8 gm/dL (3.5-5.0); Anion Gap 10 (7-16); BUN/Creatinine Ratio 10 Ratio (12-20); Blood Urea Nitrogen 6 mg/dL (9-23); Calcium 8.3 mg/dL (8.3-10.6); Calcium (Corrected) 8.5 mg/dL (8.5-10.1); Carbon Dioxide 22.3 mMol/L (20.0-31.0); Chloride 107 mMol/L (98-107); Creatinine (Component) 0.6 mg/dL (0.6-1.3); Estimated Creatinine Clearance 162.9 mL/min (>60); Glucose 126 mg/dL (74-106); Osmolality,Calculated 277 (275-295); Phosphorous 1.3 mg/dL (2.4-5.1); Potassium 3.9 mMol/L (3.4-5.1); Sodium 139 mMol/L (136-145); eGFR > 60 See Note
[2024-10-15] MEDS: KCL 20 mEq/L in D5-LR 20 MEQ/1,000 ML BAG 250 MEQ IV (02:47)
[2024-10-15] MEDS: HYDROmorphone INJ 2 MG/ML VIAL 1 MG IVP ×3 (05:14→19:38)
[2024-10-15 06:33] LABS: Basophils # (Auto) 0.0 Thou/mm3 (0.0-0.2); Basophils % (Auto) 0 % (0-2.5); Eosinophils # (Auto) 0.2 Thou/mm3 (0.0-0.5); Eosinophils % (Auto) 1 % (0-10); Hematocrit 32.0 % (36.0-46.0); Hemoglobin 11.1 g/dL (12.0-16.0); Immature Granulocytes Auto 0.05 Thou/mm3 (0.00-0.00); Lymphocytes # (Auto) 2.2 Thou/mm3 (1.0-4.8); Lymphocytes % (Auto) 18 % (10-50); Mean Corpuscular HGB Conc 34.7 g/dl (31.0-37.0); Mean Corpuscular Hemoglobin 30.2 pg (25.0-35.0); Mean Corpuscular Volume 87 fL (80-100); Monocytes # (Auto) 0.8 Thou/mm3 (0.0-0.8); Monocytes % (Auto) 7 % (0-12); Neutrophils # (Auto) 8.9 Thou/mm3 (1.8-7.7); Neutrophils % (Auto) 73 % (37-80); Nucleated Red Blood Cell # 0.00 Thou/mm3 (0.00-0.00); Nucleated Red Blood Cell % 0 /100 WBC (0); Platelet Count 191 Thou/mm3 (140-440); RDW Standard Deviation 41.1 fL (36.4-46.3); Red Blood Count 3.68 Miln/mm3 (4.00-5.20); White Blood Count 12.2 Thou/mm3 (3.6-11.0)
[2024-10-15 06:43] LABS: Alanine Aminotransferase 10 U/L (10-49); Albumin, Serum 3.5 gm/dL (3.5-5.0); Albumin/Globulin Ratio 1.5 (1.2-2.2); Alkaline Phosphatase 89 U/L (46-116); Anion Gap 10 (7-16); Aspartate Amino Transferase 11 U/L (0-34); BUN/Creatinine Ratio 7 Ratio (12-20); Bilirubin,Total 0.4 mg/dL (0.3-1.2); Blood Urea Nitrogen < 5 mg/dL (9-23); Calcium 8.4 mg/dL (8.3-10.6); Calcium (Corrected) 8.8 mg/dL (8.5-10.1); Carbon Dioxide 24.1 mMol/L (20.0-31.0); Chloride 106 mMol/L (98-107); Creatinine (Component) 0.7 mg/dL (0.6-1.3); Estimated Creatinine Clearance 142.4 mL/min (>60); Globulin 2.3 gm/dL (2.3-3.5); Glucose 125 mg/dL (74-106); Magnesium 1.7 mg/dL (1.6-2.6); Osmolality,Calculated 277 (275-295); Phosphorous 2.7 mg/dL (2.4-5.1); Potassium 4.1 mMol/L (3.4-5.1); Sodium 140 mMol/L (136-145); Total Protein 5.8 gm/dL (5.7-8.2); eGFR > 60 See Note
[2024-10-15 07:19] LABS: Glucose Estimated Average 243 mg/dL (80-131); Hemoglobin A1C 10.1 % Hgb (4.8-6.0)
[2024-10-15] MEDS: Magnesium Sulfate 2 GM Ivpb 2 GM/50 ML BAG IV (07:59)
[2024-10-15] MEDS: INSULIN REG 100 UNITS/100 ML 100 UNIT/100 ML BAG 10.274 UNIT IV (08:00)
[2024-10-15] MEDS: ONDANSETRON INJ 2 MG/ML INJ 2 ML 4 MG IVP ×2 (08:00→16:27)
[2024-10-15] MEDS: HEPARIN SOD INJ 5000 UNIT/ML VIAL SC ×2 (08:04→20:22)
[2024-10-15 10:26] LABS: Albumin, Serum 3.4 gm/dL (3.5-5.0); Anion Gap 9 (7-16); BUN/Creatinine Ratio 8 Ratio (12-20); Blood Urea Nitrogen < 5 mg/dL (9-23); Calcium 8.2 mg/dL (8.3-10.6); Calcium (Corrected) 8.7 mg/dL (8.5-10.1); Carbon Dioxide 24.5 mMol/L (20.0-31.0); Chloride 106 mMol/L (98-107); Creatinine (Component) 0.6 mg/dL (0.6-1.3); Estimated Creatinine Clearance 166.1 mL/min (>60); Glucose 103 mg/dL (74-106); Osmolality,Calculated 274 (275-295); Phosphorous 2.7 mg/dL (2.4-5.1); Potassium 3.8 mMol/L (3.4-5.1); Sodium 139 mMol/L (136-145); Triglycerides 855 mg/dL (30-150); eGFR > 60 See Note
[2024-10-15] MEDS: ACETAMINOPHEN 325 MG TABLET 650 MG PO (10:30)
--- NOTE | 2024-10-15 11:11 | XR_ITS ---
Examination: Abdomen sonogram, Limited Date and time of exam: October 15, 2024 1344 hours INDICATIONS: Epigastric pain beginning 3 days ago Technique: Real-time pettit scale transabdominal sonographic images of the upper abdomen obtained. Findings: Normal gallbladder. Common bile duct enlarged 0.6 cm no stones Pancreatic head 3.0 cm Liver 20.6 cm fatty infiltration no focal liver lesions Normal hepatopedal portal venous flow Patent IVC IMPRESSION: Mildly enlarged common bile duct, clinical correlation advised Consider MRCP follow-up
[2024-10-15] MEDS: INSULIN GLARGINE (Lantus) 5 UNIT/0.05 ML (PER 5 UNITS) 25 UNIT SC (11:14)
[2024-10-15] MEDS: FENOFIBRATE 145 MG TABLET (NON-FORMULARY) PO (11:26)
[2024-10-15] MEDS: RINGERS LACTATED 1000 ML 1,000 ML 150 ML IV ×2 (11:33→16:27)
--- NOTE | 2024-10-15 11:34 | ESPR_ITS ---
<Statement entered by Héctor Branham MD - 10/15/24 21:07> In summary: 34-year-old female PMHx of HTN, T2DM, to ICU for acute pancreatitis in setting of hypertriglyceridemia and INSULIN drip. Her symptoms have improved since admission and deemed stable for downgrade to floor. Although, currently not tolerating oral intake secondary to pain. However denies nausea or vomiting. Initial workup showing A1c of 10.1. Initially, she was on's INSULIN and other glycemic control agents but were discontinued several years ago by her PCP. FENOFIBRATE was initiated, and we added ATORVASTATIN low-dose. Additionally, there was an ultrasound of the liver done showing enlarged common bile duct. However she is asymptomatic, LFTs and TB WNL. MRCP was recommended per radiology. Will consider if she is symptomatic. Case was discussed with attending physician. Héctor Branham, PGY II This document was transcribed using voice recognition technology. Minor inaccuracies may be present. Documentation for date of: 10/15/24 Subjective Subjective Interval history: Patient is a 34 years old female with a PMH of HTN and type 2 diabetes mellitus who presented today to the ED with abdominal pain and vomiting. She reports that the abdominal pain yesterday and that it is localized mostly around the chest/epigastric region. The pain is characterized as constant with fluctuating sharp pangs that radiate to the back. She says that the pain worsens when she lays on her back and improves when laying on her side. She also endorses vomiting with the most recent episode occurring this morning at 6 AM, her last BM was yesterday producing normal stools. Other current symptoms she complains of include headache, chest pain, and shortness of breath. She endorses having one previous episode of similar pain in which she ended up being hospitalized for acute pancreatitis. On a scale from 1-10, she rates her current pain to be a 10/10. CTAP was significant for acute pancreatitis with wall thickening involving the common bile duct (radiology recommends MRCP follow-up to confirm pancreatitis and exclude cholangitis) and hepatosplenomegaly. Patient was given 1 L IV NS bolus x2, IV magnesium sulfate 4 gm x1, 10 units regular insulin x1, po simethicone, IV Dilaudid 1 mg x1, IV famotidine x1, IV Zofran x1. Patient was admitted for the work-up and management of suspected acute pancreatitis. Her lipid panel after admission showed TG 1428 therefore she was upgraded to ICU due to TG-induced pancreatitis for insulin drip. 10/15/2024: Patient received Dilaudid earlier this morning for pain, seen and examined at bedside, currently complains of some nausea will receive Zofran as needed. Patient's triglyceride down trended to 855, we will discontinue insulin drip, started on subcutaneous insulin, Lantus 25 x 1 and sliding scale insulin. Patient started on diabetic liquid diet, now tolerating diet well is able to eat couple of spoons, reports that food is causing abdominal pain, patient is using Dilaudid/morphine as needed. Started patient on fenofibrate, follow triglycerides in a.m. and consider starting patient on statins as needed. Otherwise patient's A1c 10.1, diabetic education referral to dietitian, patient never had high anion gap. Ultrasound of liver shows mildly enlarged common bile duct, consider MRCP per radiology. Patient is stable to be downgraded to telemetry, hospitalist team to follow. Exam Vital Signs Temp Pulse Resp BP Pulse Ox O2 Del Method 98.8 F 71 16 128/80 97 Room Air 10/15/24 04:00 10/15/24 06:00 10/15/24 06:00 10/15/24 06:00 10/15/24 06:00 10/14/24 20:35 Narrative Exam Gen: Well-developed and well-nourished female in moderate distress. HEENT: NCAT, PERRLA, EOMI, MMM, anicteric conjunctivae. CVS: normal S1 and S2. Regular tachycardia. No M/R/G. Resp: CTA B/L. No rhonchi, rales, crackles or wheezing. Abd: soft, obese, tender in epigastrium, non-distended. BS+ in all 4 quadrants. MSK: Good ROM in BUE & BLE. No edema or rash. Neuro: CN II-XII grossly intact. Strength 5/5 in BUE & BLE. Alert and oriented x3. Objective Labs 10/16/24 05:51 10/16/24 05:51 Labs: Laboratory Results - last 24 hr 10/14/24 10/14/24 10/14/24 12:12 12:59 14:35 WBC 17.1 H Cancelled RBC 4.57 Cancelled Hgb 14.6 Cancelled Hct 38.9 Cancelled MCV 85 Cancelled MCH 31.9 Cancelled MCHC 37.5 H Cancelled RDW Std Deviation 38.1 Cancelled Plt Count 234 Cancelled Neut % (Auto) 77 Cancelled Lymph % (Auto) 14 Cancelled [place] % (Auto) 6 Cancelled Eos % (Auto) 2 Cancelled Baso % (Auto) 0 Cancelled Neut # (Auto) 13.2 H Cancelled Lymph # (Auto) 2.4 Cancelled [place] # (Auto) 1.0 H Cancelled Eos # (Auto) 0.4 Cancelled Baso # (Auto) 0.1 Cancelled Immature Gran # (Auto) 0.07 H Cancelled Absolute Nucleated RBC 0.00 Cancelled Immature Gran % 0 Cancelled Nucleated RBC % 0 Cancelled PT 10.4 INR 0.9 APTT 24.5 D-Dimer < 250 VBG pH VBG pCO2 VBG pO2 VBG O2 Sat (Dolly) VBG Base Excess Sodium 138 Potassium 4.5 Chloride 102 Carbon Dioxide 17.2 L Anion Gap 19 H BUN 8 L Creatinine 0.9 Estim Creat Clear Calc 108.6 eGFR > 60 BUN/Creatinine Ratio 9 L Glucose [address] Glu mg/dL Hemoglobin A1c Calculated Osmolality 284 Lactic Acid Calcium 9.3 Corrected Calcium 9.3 Phosphorus Magnesium 1.3 L Total Bilirubin 0.6 AST 30 ALT 20 Alkaline Phosphatase 121 H Lactate Dehydrogenase 380 H Troponin I < 0.002 B-Natriuretic Peptide < 20 Total Protein 7.5 Albumin 4.6 Globulin 2.9 Albumin/Globulin Ratio 1.6 Triglycerides Cholesterol LDL Cholesterol, Calc HDL Cholesterol Cholesterol/HDL Ratio Lipase Beta-Hydroxybutyrate/Acetoacetate Procalcitonin Ur Collection Type Clean Catch Urine Color Yellow Urine Clarity Turbid A Urine pH 5.5 Ur Specific [place] 1.031 Urine Protein 1+ A Urine Glucose (UA) 4+ A Urine Ketones 2+ A Urine Blood Negative Urine Nitrite Negative Urine Bilirubin Negative Urine Urobilinogen (Auto) Negative Ur Leukocyte Esterase Negative Urine RBC 0 Urine WBC 1 Ur Squamous Epith Cells 14 H Urine Bacteria None Urine HCG, Qual Negative Urine Opiates Screen Negative Urine Fentanyl Screen Negative Ur Barbiturates Screen Negative U Amphetamin/Meth Scrn Negative U Benzodiazepines Scrn Negative U Cocaine Metab Screen Negative U Marijuana (THC) Screen Negative 10/14/24 10/14/24 10/14/24 16:25 17:55 20:40 WBC 13.2 H RBC 3.98 L Hgb 12.1 D Hct 34.9 L MCV 88 MCH 30.4 MCHC 34.7 RDW Std Deviation 40.2 Plt Count 192 D Neut % (Auto) 74 Lymph % (Auto) 18 [place] % (Auto) 6 Eos % (Auto) 2 Baso % (Auto) 0 Neut # (Auto) 9.7 H Lymph # (Auto) 2.3 [place] # (Auto) 0.8 Eos # (Auto) 0.2 Baso # (Auto) 0.0 Immature Gran # (Auto) 0.05 H Absolute Nucleated RBC 0.00 Immature Gran % 0 Nucleated RBC % 0 PT INR APTT D-Dimer VBG pH VBG pCO2 VBG pO2 VBG O2 Sat ([place]olly) VBG Base Excess Sodium 139 Potassium 3.8 D Chloride 107 Carbon Dioxide 19.4 L Anion Gap 13 BUN < 5 L Creatinine 0.7 Estim Creat Clear Calc 139.7 eGFR > 60 BUN/Creatinine Ratio 7 L Glucose [address] Glu mg/dL Hemoglobin A1c Calculated Osmolality 280 Lactic Acid 2.0 Calcium 8.1 L Corrected Calcium 8.3 L Phosphorus Magnesium Total Bilirubin 0.4 AST 12 ALT 12 Alkaline Phosphatase 100 D Lactate Dehydrogenase Troponin I B-Natriuretic Peptide Total Protein 6.1 Albumin 3.8 D Globulin 2.3 Albumin/Globulin Ratio 1.7 Triglycerides 1428 H Cholesterol 218 H LDL Cholesterol, Calc TNP HDL Cholesterol 19 L Cholesterol/HDL Ratio 11.5 H Lipase 49 Beta-Hydroxybutyrate/Acetoacetate 0.3 0.4 Procalcitonin 0.07 Ur Collection Type Urine Color Urine Clarity Urine pH Ur Specific [place] Urine Protein Urine Glucose (UA) Urine Ketones Urine Blood Urine Nitrite Urine Bilirubin Urine Urobilinogen (Auto) Ur Leukocyte Esterase Urine RBC Urine WBC Ur Squamous Epith Cells Urine Bacteria Urine HCG, Qual Urine Opiates Screen Urine Fentanyl Screen Ur Barbiturates Screen U Amphetamin/Meth Scrn U Benzodiazepines Scrn U Cocaine Metab Screen U Marijuana (THC) Screen 10/14/24 10/15/24 10/15/24 22:31 02:08 05:40 WBC 12.2 H RBC 3.68 L Hgb 11.1 L Hct 32.0 L MCV 87 MCH 30.2 MCHC 34.7 RDW Std Deviation 41.1 Plt Count 191 Neut % (Auto) 73 Lymph % (Auto) 18 [place] % (Auto) 7 Eos % (Auto) 1 Baso % (Auto) 0 Neut # (Auto) 8.9 H Lymph # (Auto) 2.2 [place] # (Auto) 0.8 Eos # (Auto) 0.2 Baso # (Auto) 0.0 Immature Gran # (Auto) 0.05 H Absolute Nucleated RBC 0.00 Immature Gran % 0 Nucleated RBC % 0 PT INR APTT D-Dimer VBG pH 7.37 VBG pCO2 38 VBG pO2 83 H VBG O2 Sat (Dolly) 97 VBG Base Excess -3 Sodium 139 139 140 Potassium 3.7 3.9 4.1 Chloride 106 107 106 Carbon Dioxide 22.3 22.3 24.1 Anion Gap 11 10 10 BUN 7 L 6 L < 5 L Creatinine 0.6 0.6 0.7 Estim Creat Clear Calc 162.9 162.9 142.4 eGFR > 60 > 60 > 60 BUN/Creatinine Ratio 12 10 L 7 L Glucose 229 H 126 H D [address] Glu mg/dL 243 H Hemoglobin A1c 10.1 H Calculated Osmolality 282 277 277 Lactic Acid Calcium 8.0 L 8.3 8.4 Corrected Calcium 8.2 L 8.5 8.8 Phosphorus 1.8 L 1.3 L 2.7 Magnesium 1.8 1.7 Total Bilirubin 0.4 AST 11 ALT 10 Alkaline Phosphatase 89 Lactate Dehydrogenase Troponin I B-Natriuretic Peptide Total Protein 5.8 Albumin 3.7 3.8 3.5 Globulin 2.3 Albumin/Globulin Ratio 1.5 Triglycerides Cholesterol LDL Cholesterol, Calc HDL Cholesterol Cholesterol/HDL Ratio Lipase Beta-Hydroxybutyrate/Acetoacetate 0.3 Procalcitonin Ur Collection Type Urine Color Urine Clarity Urine pH Ur Specific [place] Urine Protein Urine Glucose (UA) Urine Ketones Urine Blood Urine Nitrite Urine Bilirubin Urine Urobilinogen (Auto) Ur Leukocyte Esterase Urine RBC Urine WBC Ur Squamous Epith Cells Urine Bacteria Urine HCG, Qual Urine Opiates Screen Urine Fentanyl Screen Ur Barbiturates Screen U Amphetamin/Meth Scrn U Benzodiazepines Scrn U Cocaine Metab Screen U Marijuana (THC) Screen 10/15/24 09:39 WBC RBC Hgb Hct MCV MCH MCHC RDW Std Deviation Plt Count Neut % (Auto) Lymph % (Auto) [place] % (Auto) Eos % (Auto) Baso % (Auto) Neut # (Auto) Lymph # (Auto) [place] # (Auto) Eos # (Auto) Baso # (Auto) Immature Gran # (Auto) Absolute Nucleated RBC Immature Gran % Nucleated RBC % PT INR APTT D-Dimer VBG pH VBG pCO2 VBG pO2 VBG O2 Sat ([place]olly) VBG Base Excess Sodium 139 Potassium 3.8 Chloride 106 Carbon Dioxide 24.5 Anion Gap 9 BUN < 5 L Creatinine 0.6 Estim Creat Clear Calc 166.1 eGFR > 60 BUN/Creatinine Ratio 8 L Glucose [address] Glu mg/dL Hemoglobin A1c Calculated Osmolality 274 L Lactic Acid Calcium 8.2 L Corrected Calcium 8.7 Phosphorus 2.7 Magnesium Total Bilirubin AST ALT Alkaline Phosphatase Lactate Dehydrogenase Troponin I B-Natriuretic Peptide Total Protein Albumin 3.4 L Globulin Albumin/Globulin Ratio Triglycerides 855 H Cholesterol LDL Cholesterol, Calc HDL Cholesterol Cholesterol/HDL Ratio Lipase Beta-Hydroxybutyrate/Acetoacetate Procalcitonin Ur Collection Type Urine Color Urine Clarity Urine pH Ur Specific [place] Urine Protein Urine Glucose (UA) Urine Ketones Urine Blood Urine Nitrite Urine Bilirubin Urine Urobilinogen (Auto) Ur Leukocyte Esterase Urine RBC Urine WBC Ur Squamous Epith Cells Urine Bacteria Urine HCG, Qual Urine Opiates Screen Urine Fentanyl Screen Ur Barbiturates Screen U Amphetamin/Meth Scrn U Benzodiazepines Scrn U Cocaine Metab Screen U Marijuana (THC) Screen ABG Interpretation ABG results: 10/14/24 22:31 VBG pH 7.37 VBG pCO2 38 VBG pO2 83 H VBG Base Excess -3 Quality Measures Quality Measures VTE prophylaxis Assessment & Plan Assessment Current Active Medications: Generic Name Dose Route Start Last Admin Trade Name Samson PRN Reason Stop Dose Admin Acetaminophen 650 mg 10/14/24 19:46 10/15/24 10:30 Acetaminophen 325 Mg Tablet PO 11/13/24 19:45 650 mg Q6H PRN Administration PAIN SCALE 1-3 (mild Dextrose 25 ml 10/14/24 21:40 Dextrose 50%-Water Inj 50 Ml Syringe IV 11/13/24 21:39 Q15MIN PRN Blood sugar between 50- 69 mg/dL Dextrose 50 ml 10/14/24 21:40 Dextrose 50%-Water Inj 50 Ml Syringe IV 11/13/24 21:39 Q15MIN PRN Blood sugar less than 50 mg/dL Fenofibrate 145 mg 10/15/24 10:45 10/15/24 11:26 Fenofibrate 145 Mg Tablet (Non-Formulary) PO 11/14/24 10:44 145 mg QDAY [place] Administration Glucagon 1 mg 10/15/24 10:37 Glucagon Inj 1 Mg Vial IM Q15MIN PRN BG <70, and no IV access Heparin Sodium (Porcine) 5,000 unit 10/14/24 21:00 10/15/24 08:04 Heparin Sod Inj 5000 Unit/Ml Vial SC 10/28/24 20:59 5,000 unit Q12HR [place] Administration Hydromorphone HCl 1 mg 10/14/24 19:57 10/15/24 05:14 Hydromorphone Inj 2 Mg/Ml Vial IVP 10/19/24 19:56 1 mg Q4H PRN Administration Pain 7-10 Insulin Human Regular 100 unit in 100 mls @ 10.274 mls/hr 10/14/24 21:45 10/15/24 08:00 Myxredlin IV 11/13/24 21:44 0.1 unit/kg/hr .Q9H44M [place] 10.274 mls/hr Administration 0.1 UNIT/KG/HR Dextrose/Lactated Ringer's 1,000 mls @ 150 mls/hr 10/14/24 21:45 10/15/24 10:28 D5-Lr IV 11/13/24 21:44 Not Given .Q6H40M [place] Potassium Chloride 10 meq in 100 mls @ 100 mls/hr 10/14/24 22:25 Kcl Ivpb IV 11/13/24 22:24 .Q1H PRN IF POTASSIUM LESS THAN 3.3 Potassium Chloride 10 meq in 100 mls @ 50 mls/hr 10/14/24 22:25 Kcl Ivpb IV 11/13/24 22:24 PRN PRN K LEVEL 3.3 to 5.3 & BG > 200 Lactated Ringer's 1,000 mls @ 150 mls/hr 10/14/24 23:15 Lactated Ringers IV 10/15/24 22:24 .Q6H40M PRN PER PROTOCOL Dextrose/Lactated Ringer's 1,000 mls @ 150 mls/hr 10/14/24 23:15 D5-Lr IV 11/13/24 22:24 .Q6H40M PRN PER PROTOCOL Lactated Ringer's 1,000 mls @ 150 mls/hr 10/14/24 23:15 Lactated Ringers IV 10/15/24 22:24 .Q6H40M PRN PER PROTOCOL Insulin Glargine 25 unit 10/15/24 10:45 10/15/24 11:14 Insulin Glargine (Lantus) 5 Unit/0.05 Ml (Per 5 Units) SC 11/14/24 10:44 25 unit QDAY [place] Administration Insulin Human Lispro 0 unit 10/15/24 11:30 10/15/24 11:29 Insulin Lispro (Admelog) 1 Unit/0.01 Ml Unit SC 11/14/24 11:29 Not Given ACHS [place] Protocol Morphine Sulfate 1 mg 10/14/24 19:57 10/15/24 08:21 Morphine Sulf Inj 10 Mg/Ml Vial IVP 1 mg Q4H PRN Administration Pain 4-6 Ondansetron HCl 4 mg 10/14/24 19:46 10/15/24 08:00 Ondansetron Inj 2 Mg/Ml Inj 2 Ml IVP 11/13/24 19:45 4 mg Q6H PRN Administration NAUSEA OR VOMITING Protocol Sennosides 1 tab 10/14/24 19:46 Senna Tablet PO 11/13/24 19:45 QDAY PRN constipation Protocol Plan Patient is a 34 years old female with a PMH of HTN and type 2 diabetes mellitus who presented today to the ED with abdominal pain and vomiting, was admitted for the work-up and management of acute pancreatitis and was upgraded to ICU for insulin drip due to TG-induced pancreatitis. Neuro: No active problem. Cardiovascular: #Sinus tachycardia. Likely due to pain, EKG showed sinus tachycardia. Plan: - pain management as below. - continuous telemonitor. #Hypertension, by history Patient was prescribed losartan in July. - Hold antihypertensives, blood pressure within normal limits - Pending med rec Respiratory: No active problem. Gastrointestinal: #Hypertriglyceridemia-induced acute pancreatitis. Patient presented with abdominal pain and vomiting, and prior history of admission due to pancreatitis, CTAP showed acute pancreatitis with wall thickening involving the common bile duct (radiology recommends MRCP follow-up to confirm pancreatitis and exclude cholangitis) and hepatosplenomegaly. Labs showed Lipase 49, TG 1428, LFTs and t.bili are WNL. Patient does not have any Charcot triad symptoms other than RUQ pain which appears to be referred pain from epigastrium, at this moment low suspicion for cholangitis. Plan: -Started patient on IV Dilaudid 1 mg q4H prn and IV morphine 1mg q4H prn for pain management per scale. -Continue LR 150 cc/h -Started on fenofibrate daily -Follow triglyceride level in a.m. -Consider adding statin in AM Renal: No active problem. Endocrine: #Uncontrolled type 2 diabetes mellitus, A1c 10.1 Upon admission, patient had a high blood glucose of 290 and high LDH of 380 with UA showing 4+ glucose and 2+ ketones. She also had an elevated anion gap of 19, a normal beta-hydroxybutyrate of 0.4 and VBG pH 7.37. Patient stated that her diabetes has resolved and her PCP took off her DM medications. Plan: -Lantus 25 units daily -Sliding scale insulin -Diabetic liquid diet -Discontinued insulin drip -Continue LR 150 cc/h -Diabetic education, referral to dietitian Infectious Disease: No active problem. Hematology/Oncology: #Leukocytosis. On admission to the ED WBCs 17.1, repeat showed 13.2, no fever or chills, pro- marquez is WNL. Likely reactive in setting of acute pancreatitis. Plan: - monitor with daily labs #Normocytic normochromic anemia Follow CBC in a.m. Diet: Diabetic diet liquid DVT prophylaxis: heparin. GI prophylaxis: none. Lines: peripheral x2. [place]: not in place. Code status: full code. Disposition: ICU. Case discussed with Attending Dr. Akash Gomez PGY2 Disclaimer: This note was dictated by speech recognition. Minor errors in photogeologist may be present due to voice recognition software. Attending Provider Attestation/Addendum Patient seen and examined with resident team, agree with above. In brief this a 34-year-old female with a history of dyslipidemia who presented to the ER for abdominal pain. The patient was noted to have pancreatitis and a triglyceride level was found to be significantly elevated at around 1500. Decision was made to place patient on insulin drip and admit to the ICU for hyper-triglyceridemia. The patient was found to have improving abd pain and improving trig #s. She is continued on IVF and transitioned to subq insulin. started on fenofibrated. overall improved in appearance d/w ICU team labs, imaging, records reviewed, ~ 35min required for eval, exam, review, intervention, discussion and formulation of POC for this acutely ill pt
[2024-10-15 14:26] LABS: Albumin, Serum 3.6 gm/dL (3.5-5.0); Anion Gap 8 (7-16); BUN/Creatinine Ratio 7 Ratio (12-20); Blood Urea Nitrogen < 5 mg/dL (9-23); Calcium 8.9 mg/dL (8.3-10.6); Calcium (Corrected) 9.2 mg/dL (8.5-10.1); Carbon Dioxide 27.0 mMol/L (20.0-31.0); Chloride 104 mMol/L (98-107); Creatinine (Component) 0.7 mg/dL (0.6-1.3); Estimated Creatinine Clearance 142.4 mL/min (>60); Glucose 137 mg/dL (74-106); Osmolality,Calculated 276 (275-295); Phosphorous 3.5 mg/dL (2.4-5.1); Potassium 4.1 mMol/L (3.4-5.1); Sodium 139 mMol/L (136-145); eGFR > 60 See Note
--- NOTE | 2024-10-15 15:38 | ESPR_ITS ---
Documentation for date of: 10/15/24 Subjective Subjective Interval history: A 34-year-old female with a history of hypertension and type 2 diabetes mellitus presented to the ED with severe abdominal pain and vomiting. Her pain, localized to the chest/epigastric region and radiating to the back, was similar to a previous hospitalization for acute pancreatitis. CT imaging confirmed acute pancreatitis with common bile duct thickening and hepatosplenomegaly. Initial lab work showed extremely high triglycerides (1428), leading to an ICU admission for triglyceride-induced pancreatitis and an insulin drip. As of 10/15/2024 her triglycerides decreased significantly to 855, allowing for the discontinuation of the insulin drip and a transition to subcutaneous insulin. She started a diabetic liquid diet but reported abdominal pain with food intake. Fenofibrate was initiated to further lower triglycerides. Her A1c was 10.1, prompting a diabetic education referral. An ultrasound showed a mildly enlarged common bile duct, and an MRCP is being considered. The patient is now stable and has been downgraded to telemetry. Exam Vital Signs Temp Pulse Resp BP Pulse Ox O2 Del Method 97.5 F 105 H 16 123/84 97 Room Air 10/15/24 12:00 10/15/24 15:00 10/15/24 15:00 10/15/24 15:00 10/15/24 15:10/15/24 12:00 Narrative Exam Gen: Well-developed and well-nourished female in moderate distress. HEENT: NCAT, PERRLA, EOMI, MMM, anicteric conjunctivae. CVS: normal S1 and S2. Regular tachycardia. No M/R/G. Resp: CTA B/L. No rhonchi, rales, crackles or wheezing. Abd: soft, obese, tender in epigastrium, non-distended. BS+ in all 4 quadrants. MSK: Good ROM in BUE & BLE. No edema or rash. Neuro: CN II-XII grossly intact. Strength 5/5 in BUE & BLE. Alert and oriented x3. Objective Labs 10/16/24 05:51 10/16/24 05:51 Labs: Laboratory Results - last 24 hr 10/14/24 10/14/24 10/14/24 14:35 16: 17:55 WBC RBC Hgb Hct MCV MCH MCHC RDW Std Deviation Plt Count Neut % (Auto) Lymph % (Auto) [place] % (Auto) Eos % (Auto) Baso % (Auto) Neut # (Auto) Lymph # (Auto) [place] # (Auto) Eos # (Auto) Baso # (Auto) Immature Gran # (Auto) Absolute Nucleated RBC Immature Gran % Nucleated RBC % VBG pH VBG pCO2 VBG pO2 VBG O2 Sat (Dolly) VBG Base Excess Sodium Potassium Chloride Carbon Dioxide Anion Gap BUN Creatinine Estim Creat Clear Calc eGFR BUN/Creatinine Ratio Glucose Estimated Ave Glu mg/dL Hemoglobin A1c Calculated Osmolality Lactic Acid 2.0 Calcium Corrected Calcium Phosphorus Magnesium Total Bilirubin AST ALT Alkaline Phosphatase Total Protein Albumin Globulin Albumin/Globulin Ratio Triglycerides Cholesterol LDL Cholesterol, Calc HDL Cholesterol Cholesterol/HDL Ratio Lipase 49 Beta-Hydroxybutyrate/Acetoacetate 0.3 0.4 Procalcitonin 0.07 Urine HCG, Qual Negative 10/14/24 10/14/24 10/15/24 20:40 22:31 02:08 WBC 13.2 H RBC 3.98 L Hgb 12.1 D Hct 34.9 L MCV 88 MCH 30.4 MCHC 34.7 RDW Std Deviation 40.2 Plt Count 192 D Neut % (Auto) 74 Lymph % (Auto) 18 [place] % (Auto) 6 Eos % (Auto) 2 Baso % (Auto) 0 Neut # (Auto) 9.7 H Lymph # (Auto) 2.3 [place] # (Auto) 0.8 Eos # (Auto) 0.2 Baso # (Auto) 0.0 Immature Gran # (Auto) 0.05 H Absolute Nucleated RBC 0.00 Immature Gran % 0 Nucleated RBC % 0 VBG pH 7.37 VBG pCO2 38 VBG pO2 83 H VBG O2 Sat (Dolly) 97 VBG Base Excess -3 Sodium 139 139 139 Potassium 3.8 D 3.7 3.9 Chloride 107 106 107 Carbon Dioxide 19.4 L 22.3 22.3 Anion Gap 13 11 10 BUN < 5 L 7 L 6 L Creatinine 0.7 0.6 0.6 Estim Creat Clear Calc 139.7 162.9 162.9 eGFR > 60 > 60 > 60 BUN/Creatinine Ratio 7 L 12 10 L Glucose 205 H D [address] H [address] Glu mg/dL Hemoglobin A1c Calculated Osmolality 280 282 277 Lactic Acid Calcium 8.1 L 8.0 L 8.3 Corrected Calcium 8.3 L 8.2 L 8.5 Phosphorus 1.8 L 1.3 L Magnesium 1.8 Total Bilirubin 0.4 AST 12 ALT 12 Alkaline Phosphatase 100 D Total Protein 6.1 Albumin 3.8 D 3.7 3.8 Globulin 2.3 Albumin/Globulin Ratio 1.7 Triglycerides 1428 H Cholesterol 218 H LDL Cholesterol, Calc TNP HDL Cholesterol 19 L Cholesterol/HDL Ratio 11.5 H Lipase Beta-Hydroxybutyrate/Acetoacetate 0.3 Procalcitonin Urine HCG, Qual 10/15/24 10/15/24 10/15/24 05:40 09:39 13:59 WBC 12.2 H RBC 3.68 L Hgb 11.1 L Hct 32.0 L MCV 87 MCH 30.2 MCHC 34.7 RDW Std Deviation 41.1 Plt Count 191 Neut % (Auto) 73 Lymph % (Auto) 18 [place] % (Auto) 7 Eos % (Auto) 1 Baso % (Auto) 0 Neut # (Auto) 8.9 H Lymph # (Auto) 2.2 [place] # (Auto) 0.8 Eos # (Auto) 0.2 Baso # (Auto) 0.0 Immature Gran # (Auto) 0.05 H Absolute Nucleated RBC 0.00 Immature Gran % 0 Nucleated RBC % 0 VBG pH VBG pCO2 VBG pO2 VBG O2 Sat (Dolly) VBG Base Excess Sodium 140 139 139 Potassium 4.1 3.8 4.1 Chloride 106 106 104 Carbon Dioxide 24.1 24.5 27.0 Anion Gap 10 9 8 BUN < 5 L < 5 L < 5 L Creatinine 0.7 0.6 0.7 Estim Creat Clear Calc 142.4 166.1 142.4 eGFR > 60 > 60 > 60 BUN/Creatinine Ratio 7 L 8 L 7 L Glucose 125 H [address] Glu mg/dL 243 H Hemoglobin A1c 10.1 H Calculated Osmolality 277 274 L 276 Lactic Acid Calcium 8.4 8.2 L 8.9 Corrected Calcium 8.8 8.7 9.2 Phosphorus 2.7 2.7 3.5 Magnesium 1.7 Total Bilirubin 0.4 AST 11 ALT 10 Alkaline Phosphatase 89 Total Protein 5.8 Albumin 3.5 3.4 L 3.6 Globulin 2.3 Albumin/Globulin Ratio 1.5 Triglycerides 855 H Cholesterol LDL Cholesterol, Calc HDL Cholesterol Cholesterol/HDL Ratio Lipase Beta-Hydroxybutyrate/Acetoacetate Procalcitonin Urine HCG, Qual ABG Interpretation ABG results: 10/14/24 22:31 VBG pH 7.37 VBG pCO2 38 VBG pO2 83 H VBG Base Excess -3 Quality Measures Quality Measures VTE prophylaxis Assessment & Plan Assessment Current Active Medications: Generic Name Dose Route Start Last Admin Trade Name Freq PRN Reason Stop Dose Admin Acetaminophen 650 mg 10/14/24 19:46 10/15/24 10:30 Acetaminophen 325 Mg Tablet PO 11/13/24 19:45 650 mg Q6H PRN Administration PAIN SCALE 1-3 (mild Dextrose 25 ml 10/14/24 21:40 Dextrose 50%-Water Inj 50 Ml Syringe IV 11/13/24 21:39 Q15MIN PRN Blood sugar between 50- 69 mg/dL Dextrose 50 ml 10/14/24 21:40 Dextrose 50%-Water Inj 50 Ml Syringe IV 11/13/24 21:39 Q15MIN PRN Blood sugar less than 50 mg/dL Fenofibrate 145 mg 10/15/24 10:45 10/15/24 11:26 Fenofibrate 145 Mg Tablet (Non-Formulary) PO 11/14/24 10:44 145 mg QDAY [place] Administration Glucagon 1 mg 10/15/24 10:37 Glucagon Inj 1 Mg Vial IM Q15MIN PRN BG <70, and no IV access Heparin Sodium (Porcine) 5,000 unit 10/14/24 21:00 10/15/24 08:04 Heparin Sod Inj 5000 Unit/Ml Vial SC 10/28/24 20:59 5,000 unit Q12HR [place] Administration Hydromorphone HCl 1 mg 10/14/24 19:57 10/15/24 13:41 Hydromorphone Inj 2 Mg/Ml Vial IVP 10/19/24 19:56 1 mg Q4H PRN Administration Pain 7-10 Lactated Ringer's 1,000 mls @ 150 mls/hr 10/15/24 15:21 Lactated Ringers IV 11/14/24 15:20 .Q6H40M [place] Insulin Glargine 25 unit 10/15/24 10:45 10/15/24 11:14 Insulin Glargine (Lantus) 5 Unit/0.05 Ml (Per 5 Units) SC 11/14/24 10:44 25 unit QDAY [place] Administration Insulin Human Lispro 0 unit 10/15/24 11:30 10/15/24 11:29 Insulin Lispro (Admelog) 1 Unit/0.01 Ml Unit SC 11/14/24 11:29 Not Given ACHS [facility] Protocol Morphine Sulfate 1 mg 10/14/24 19:57 10/15/24 08:21 Morphine Sulf Inj 10 Mg/Ml Vial IVP 1 mg Q4H PRN Administration Pain 4-6 Ondansetron HCl 4 mg 10/14/24 19:46 10/15/24 08:00 Ondansetron Inj 2 Mg/Ml Inj 2 Ml IVP 11/13/24 19:45 4 mg Q6H PRN Administration NAUSEA OR VOMITING Protocol Sennosides 1 tab 10/14/24 19:46 Senna Tablet PO 11/13/24 19:45 QDAY PRN constipation Protocol Plan Assessment: 34 years old female with a PMH of HTN and T2DM presented to the ED with abdominal pain and vomiting, was admitted for the work-up and management of acute pancreatitis and was upgraded to ICU for insulin drip due to TG-induced pancreatitis. Patient is stable and downgraded to telemetry for further management. #Hypertriglyceridemia-induced acute pancreatitis. Patient presented with abdominal pain and vomiting, and prior history of admission due to pancreatitis, CTAP showed acute pancreatitis with wall thickening involving the common bile duct (radiology recommends MRCP follow-up to confirm pancreatitis and exclude cholangitis) and hepatosplenomegaly. Labs showed Lipase 49, TG 1428, LFTs and t.bili are WNL. Patient does not have any Charcot triad symptoms other than RUQ pain which appears to be referred pain from epigastrium, at this moment low suspicion for cholangitis. Plan: -Started patient on IV Dilaudid 1 mg q4H prn and IV morphine 1mg q4H prn for pain management per scale. -Continue LR 150 cc/h -Started on fenofibrate daily -Follow triglyceride level in a.m. -Consider adding statin in AM #Uncontrolled type 2 diabetes mellitus, A1c 10.1 Upon admission, patient had a high blood glucose of 290 and high LDH of 380 with UA showing 4+ glucose and 2+ ketones. She also had an elevated anion gap of 19, a normal beta-hydroxybutyrate of 0.4 and VBG pH 7.37. Patient stated that her diabetes has resolved and her PCP took off her DM medications. Plan: -Lantus 25 units daily -Sliding scale insulin -Diabetic liquid diet -Discontinued insulin drip -Continue LR 150 cc/h -Diabetic education, referral to dietitian #Leukocytosis. On admission to the ED WBCs 17.1, repeat showed 13.2, no fever or chills, pro- marquez is WNL. Likely reactive in setting of acute pancreatitis. Plan: - monitor with daily labs #Normocytic normochromic anemia Follow CBC in a.m. Health Maintenance: Diet: NPO DVT prophylaxis: heparin GI prophylaxis: none Lines: peripheral x2 [place]: not in place Code status: full code Disposition: telemetry Case discussed with my attending Dr. Toledo, and senior resident, Dr. Carrol John MD PGY-1 Attending Provider Attestation/Addendum I, Summer Toledo, , attest that I was physically present for the corral portions of the service and evaluated the patient with the resident and I reviewed and discussed the case with the resident and agree with the resident's findings and plans of care as documented above Patient seen and eval this a.m. She states that she continues to have some mild epigastric pain and unable to tolerate any p.o. intake despite being started on clear liquid diet. Patient states that she had been previously diagnosed with diabetes since her , but her A1c had improved and medications were discontinued. Patient has had pancreatitis 1 time before this episode. She has now been downgraded from the ICU after insulin drip was discontinued for pancreatitis secondary to hypertriglyceridemia. Triglycerides have slowly downtrended and now are in the 800s from 1428. There is mild tenderness to palpation in her epigastric region. Will continue with IV fluid hydration and has been started on fenofibrate. Will also start low-dose statin, monitor for any interactions. Will also monitor blood sugar closely due to uncontrolled diabetes with an A1c of 10.1. Patient was made aware of her current diagnoses and counseled to follow-up closely with primary doctor upon discharge. Will continue with IV fluid hydration and pain control at this time. Will advance the diet as tolerated.
--- NOTE | 2024-10-15 16:48 | PC.SS ---
JIG BORE OPERATOR conducted bedside contact with the patient conduct initial assessment and to discuss discharge planning.? Patient confirmed demographic information.? Patient resides at home with partner, Flako Del Rosario; .? Patient does not utilize any form of DME to assist with ambulation.? Patient does not utilize home oxygen.? Patient describes the ability to complete ADL?s independently.? Patient identified partner, Flako Del Rosario; as medical surrogate decision maker.? Patient?s PCP is Lissette Portillo.? Patient does not participate with dialysis.? Patient does not possess any specialty providers.? Plan is for the patient to return home at the time of discharge.? Family will provide transportation on behalf of the patient. ?No further discharge needs identified by the patient.? No further intervention required at this time, social organization professor will be available to address any further concerns.? Next of Kin: Flako Del Rosario D/C Plan: Home
[2024-10-15] MEDS: INSULIN LISPRO (AdmeLOG) 1 UNIT/0.01 ML UNIT SC ×2 (17:38→20:22)
--- NOTE | 2024-10-15 19:35 | PC.NURSE ---
Hand off report given to Enrike. Patient is in room with call light within reach.
[2024-10-15] MEDS: ATORVASTATIN CALCIUM 20 MG TABLET PO (20:23)
--- NOTE | 2024-10-16 03:05 | PC.NURSE ---
Report received pt arrived to room 371 via wheelchair, oriented to room call light within reach.
[2024-10-16] MEDS: HYDROmorphone INJ 2 MG/ML VIAL 1 MG IVP ×4 (04:18→23:47)
[2024-10-16 05:41] VITALS: BMI 37.7
[2024-10-16] MEDS: RINGERS LACTATED 1000 ML 1,000 ML 150 ML IV ×3 (06:19→17:47)
[2024-10-16 06:25] VITALS: PULSE 87
[2024-10-16 06:39] LABS: Basophils # (Auto) 0.0 Thou/mm3 (0.0-0.2); Basophils % (Auto) 0 % (0-2.5); Eosinophils # (Auto) 0.2 Thou/mm3 (0.0-0.5); Eosinophils % (Auto) 2 % (0-10); Hematocrit 32.6 % (36.0-46.0); Hemoglobin 11.2 g/dL (12.0-16.0); Immature Granulocytes Auto 0.03 Thou/mm3 (0.00-0.00); Lymphocytes # (Auto) 2.0 Thou/mm3 (1.0-4.8); Lymphocytes % (Auto) 17 % (10-50); Mean Corpuscular HGB Conc 34.4 g/dl (31.0-37.0); Mean Corpuscular Hemoglobin 30.1 pg (25.0-35.0); Mean Corpuscular Volume 88 fL (80-100); Monocytes # (Auto) 0.7 Thou/mm3 (0.0-0.8); Monocytes % (Auto) 6 % (0-12); Neutrophils # (Auto) 8.5 Thou/mm3 (1.8-7.7); Neutrophils % (Auto) 74 % (37-80); Nucleated Red Blood Cell # 0.00 Thou/mm3 (0.00-0.00); Nucleated Red Blood Cell % 0 /100 WBC (0); Platelet Count 190 Thou/mm3 (140-440); RDW Standard Deviation 41.1 fL (36.4-46.3); Red Blood Count 3.72 Miln/mm3 (4.00-5.20); White Blood Count 11.5 Thou/mm3 (3.6-11.0)
[2024-10-16 07:09] LABS: Alanine Aminotransferase 12 U/L (10-49); Albumin, Serum 3.5 gm/dL (3.5-5.0); Albumin/Globulin Ratio 1.5 (1.2-2.2); Alkaline Phosphatase 93 U/L (46-116); Anion Gap 9 (7-16); Aspartate Amino Transferase 21 U/L (0-34); BUN/Creatinine Ratio 7 Ratio (12-20); Bilirubin,Total 0.5 mg/dL (0.3-1.2); Blood Urea Nitrogen < 5 mg/dL (9-23); Calcium 8.8 mg/dL (8.3-10.6); Calcium (Corrected) 9.2 mg/dL (8.5-10.1); Carbon Dioxide 24.7 mMol/L (20.0-31.0); Chloride 103 mMol/L (98-107); Creatinine (Component) 0.7 mg/dL (0.6-1.3); Estimated Creatinine Clearance 142.4 mL/min (>60); Globulin 2.4 gm/dL (2.3-3.5); Glucose 201 mg/dL (74-106); Magnesium 1.3 mg/dL (1.6-2.6); Osmolality,Calculated 277 (275-295); Phosphorous 3.5 mg/dL (2.4-5.1); Potassium 4.0 mMol/L (3.4-5.1); Sodium 137 mMol/L (136-145); Total Protein 5.9 gm/dL (5.7-8.2); Triglycerides 752 mg/dL (30-150); eGFR > 60 See Note
[2024-10-16] MEDS: ACETAMINOPHEN 325 MG TABLET 650 MG PO (07:45)
[2024-10-16 08:00] VITALS: BP 135/98; PULSE 83; PULSE 86; RESP 17; TEMP 36.2; O2SAT 96
--- NOTE | 2024-10-16 08:14 | ESPR_ITS ---
<Statement entered by Héctor Branham MD - 10/16/24 21:14> Summary: 34-year-old female with PMHx of HTN, T2DM, admitted for acute pancreatitis due to hypertriglyceridemia, requiring ICU admission for INSULIN drip. Was downgraded to floors. Currently on FENOFIBRATE and ATORVASTATIN. Remained stable, although not tolerating oral intake secondary to pain. Also has right upper quadrant abdominal pain with liver ultrasound findings of enlarged common bile duct. Currently pending MRCP to rule out gallstone pancreatitis or other biliary pathology. Case was discussed with attending physician. Héctor Branham, DO PGY II This document was transcribed using voice recognition technology. Minor inaccuracies may be present. Documentation for date of: 10/16/24 Subjective Subjective Interval history: Patient seen at the bedside. No acute overnight events. Patient mentions her last bowel movement was 3 days ago and feels bloated. Abdominal pain is still present approximately rating it at 8 out of 10, radiating to the back with the use of Dilaudid the pain subsides for a brief period approximately 1 to 2 hours before returning. Exam Vital Signs Temp Pulse Resp BP Pulse Ox O2 Del Method 97.1 F 87 18 128/89 H 93 L Room Air 10/15/24 20:00 10/16/24 06:25 10/15/24 20:00 10/15/24 20:00 10/15/24 20:00 10/15/24 16:00 Narrative Exam Gen: Well-developed and well-nourished female in moderate distress. HEENT: NCAT, PERRLA, EOMI, MMM, anicteric conjunctivae. CVS: normal S1 and S2. Regular tachycardia. No M/R/G. Resp: CTA B/L. No rhonchi, rales, crackles or wheezing. Abd: soft, obese, tender in epigastrium, non-distended. BS+ in all 4 quadrants. MSK: Good ROM in BUE & BLE. No edema or rash. Neuro: CN II-XII grossly intact. Strength 5/5 in BUE & BLE. Alert and oriented x3. Objective Labs 10/17/24 04:49 10/17/24 04:49 Labs: Laboratory Results - last 24 hr 10/15/24 10/15/24 10/16/24 09:39 13:59 05:51 WBC 11.5 H RBC 3.72 L Hgb 11.2 L Hct 32.6 L MCV 88 MCH 30.1 MCHC 34.4 RDW Std Deviation 41.1 Plt Count 190 Neut % (Auto) 74 Lymph % (Auto) 17 [place] % (Auto) 6 Eos % (Auto) 2 Baso % (Auto) 0 Neut # (Auto) 8.5 H Lymph # (Auto) 2.0 [place] # (Auto) 0.7 Eos # (Auto) 0.2 Baso # (Auto) 0.0 Immature Gran # (Auto) 0.03 H Absolute Nucleated RBC 0.00 Immature Gran % 0 Nucleated RBC % 0 Sodium 139 139 137 Potassium 3.8 4.1 4.0 Chloride 106 104 103 Carbon Dioxide 24.5 27.0 24.7 Anion Gap 9 8 9 BUN < 5 L < 5 L < 5 L Creatinine 0.6 0.7 0.7 Estim Creat Clear Calc 166.1 142.4 142.4 eGFR > 60 > 60 > 60 BUN/Creatinine Ratio 8 L 7 L 7 L Glucose 103 137 H 201 H D Calculated Osmolality 274 L 276 277 Calcium 8.2 L 8.9 8.8 Corrected Calcium 8.7 9.2 9.2 Phosphorus 2.7 3.5 3.5 Magnesium 1.3 L Total Bilirubin 0.5 AST 21 ALT 12 Alkaline Phosphatase 93 Total Protein 5.9 Albumin 3.4 L 3.6 3.5 Globulin 2.4 Albumin/Globulin Ratio 1.5 Triglycerides 855 H 752 H ABG Interpretation ABG results: 10/14/24 22:31 VBG pH 7.37 VBG pCO2 38 VBG pO2 83 H VBG Base Excess -3 Quality Measures Quality Measures VTE prophylaxis Assessment & Plan Assessment Current Active Medications: Generic Name Dose Route Start Last Admin Trade Name Freq PRN Reason Stop Dose Admin Acetaminophen 650 mg 10/14/24 19:46 10/15/24 10:30 Acetaminophen 325 Mg Tablet PO 11/13/24 19:45 650 mg Q6H PRN Administration PAIN SCALE 1-3 (mild Atorvastatin Calcium 20 mg 10/15/24 21:00 10/15/24 20:23 Atorvastatin Calcium 20 Mg Tablet PO 11/14/24 20:59 20 mg HS [place] Administration Dextrose 25 ml 10/14/24 21:40 Dextrose 50%-Water Inj 50 Ml Syringe IV 11/13/24 21:39 Q15MIN PRN Blood sugar between 50- 69 mg/dL Dextrose 50 ml 10/14/24 21:40 Dextrose 50%-Water Inj 50 Ml Syringe IV 11/13/24 21:39 Q15MIN PRN Blood sugar less than 50 mg/dL Fenofibrate 145 mg 10/15/24 10:45 10/15/24 11:26 Fenofibrate 145 Mg Tablet (Non-Formulary) PO 11/14/24 10:44 145 mg QDAY [place] Administration Glucagon 1 mg 10/15/24 10:37 Glucagon Inj 1 Mg Vial IM Q15MIN PRN BG <70, and no IV access Heparin Sodium (Porcine) 5,000 unit 10/14/24 21:00 10/15/24 20:22 Heparin Sod Inj 5000 Unit/Ml Vial SC 10/28/24 20:59 5,000 unit Q12HR [place] Administration Hydromorphone HCl 1 mg 10/14/24 19:57 10/16/24 04:18 Hydromorphone Inj 2 Mg/Ml Vial IVP 10/19/24 19:56 1 mg Q4H PRN Administration Pain 7-10 Lactated Ringer's 1,000 mls @ 150 mls/hr 10/15/24 15:21 10/16/24 06:19 Lactated Ringers IV 11/14/24 15:20 150 mls/hr .Q6H40M [place] Administration Insulin Glargine 25 unit 10/15/24 10:45 10/15/24 11:14 Insulin Glargine (Lantus) 5 Unit/0.05 Ml (Per 5 Units) SC 11/14/24 10:44 25 unit QDAY [place] Administration Insulin Human Lispro 0 unit 10/15/24 11:30 10/15/24 20:22 Insulin Lispro (Admelog) 1 Unit/0.01 Ml Unit SC 11/14/24 11:29 1 unit ACHS [place] Administration Protocol Ondansetron HCl 4 mg 10/14/24 19:46 10/15/24 16:27 Ondansetron Inj 2 Mg/Ml Inj 2 Ml IVP 11/13/24 19:45 4 mg Q6H PRN Administration NAUSEA OR VOMITING Protocol Sennosides 1 tab 10/14/24 19:46 Senna Tablet PO 11/13/24 19:45 QDAY PRN constipation Protocol Plan Assessment: 34 years old female with a PMH of HTN and T2DM presented to the ED with abdominal pain and vomiting, was admitted for the work-up and management of acute pancreatitis and was upgraded to ICU for insulin drip due to TG-induced pancreatitis. Patient is stable and downgraded to telemetry for further management. #Hypertriglyceridemia-induced acute pancreatitis. Patient presented with abdominal pain and vomiting, and prior history of admission due to pancreatitis, CTAP showed acute pancreatitis with wall thickening involving the common bile duct (radiology recommends MRCP follow-up to confirm pancreatitis and exclude cholangitis) and hepatosplenomegaly. Labs showed Lipase 49, TG 1428, LFTs and t.bili are WNL. Patient does not have any Charcot triad symptoms other than RUQ pain which appears to be referred pain from epigastrium, at this moment low suspicion for cholangitis. Triglyceride level 752 today, downtrending Plan: -IV Dilaudid 1 mg q4H prn and IV morphine 1mg q4H prn for pain management per scale. -Continue LR 150 cc/h -Fenofibrate 145 mg daily ?Atorvastatin 20 mg daily RUQ pain Enlarged CBD Has RUQ pain, positive Mackey signs, and enlarged CBD on liver US. Pending MRCP to r/o choledocholithiasis or gallstone pancreatitis. #Uncontrolled type 2 diabetes mellitus, A1c 10.1 Upon admission, patient had a high blood glucose of 290 and high LDH of 380 with UA showing 4+ glucose and 2+ ketones. She also had an elevated anion gap of 19, a normal beta-hydroxybutyrate of 0.4 and VBG pH 7.37. Patient stated that her diabetes has resolved and her PCP took off her DM medications. Plan: -Lantus 25 units daily -Sliding scale insulin -Diabetic liquid diet -Continue LR 150 cc/h -Diabetic education, referral to dietitian #Constipation Mild abdominal distention, patient feels bloated, likely worsening pain in the abdomen Last BM was 3 days ago ? Scheduled senna 1 tab daily ? Scheduled MiraLAX 17 g daily #Leukocytosis?improving On admission to the ED WBCs 17.1, repeat showed 13.2, no fever or chills, pro- marquez is WNL. Likely reactive in setting of acute pancreatitis WBC today 11.5 Plan: - monitor with daily labs #Normocytic normochromic anemia Hgb 11.2, MCV 88 -Trend CBC Health Maintenance: Diet: Diabetic clear liquid DVT prophylaxis: Heparin GI prophylaxis: none Code status: Full code Disposition: Telemetry Case discussed with my attending Dr. Merchant, and senior resident, Dr. Carrol John MD PGY-1 Attending Provider Attestation/Addendum Patient seen and examined with housestaff. The patient has pancreatitis. She has high triglyceride level. Fenofibrate started. MRCP requested. She has no vomiting but has abdominal pain. I discussed with and supervised the resident physician who took care of this patient. I agree with the assessment and plan as above.
--- NOTE | 2024-10-16 08:37 | PC.NURSE ---
Spoke w/ Mary Ellen in pharmacy re: no Fenofibrate on unit. She will send some up.
[2024-10-16] MEDS: HEPARIN SOD INJ 5000 UNIT/ML VIAL SC ×2 (08:42→20:14)
[2024-10-16] MEDS: INSULIN GLARGINE (Lantus) 5 UNIT/0.05 ML (PER 5 UNITS) 25 UNIT SC (08:42)
[2024-10-16] MEDS: INSULIN LISPRO (AdmeLOG) 1 UNIT/0.01 ML UNIT SC ×2 (08:44→11:52)
[2024-10-16] MEDS: FENOFIBRATE 145 MG TABLET (NON-FORMULARY) PO (09:39)
--- NOTE | 2024-10-16 11:34 | XR_ITS ---
MRI abdomen, without contrast. MRCP Date and time of exam: October 16, 2024 1913 hours INDICATIONS: Abdominal pain this week, mildly enlarged common bile duct on ultrasound of the abdomen October 15, 2024 Technique: Multiple axial and coronal images of the abdomen have been obtained with the Siemens 1.5T MRI scanner. Images obtained included T1 weighted transverse images, T2-weighted transverse images, T2-weighted transverse images fat-suppressed, T2 weighted haste fat suppressed transverse images, T1 weighted images, in and out of phase images, T2-weighted coronal images, breath hold, T2 weighted haze coronal images as well as T2 weighted coronal thick slab images, MRCP. Findings: Hepatomegaly 23 cm, no intrahepatic biliary tract dilatation No gallstones, gallbladder wall is not thickened Normal common hepatic common bile duct, no focal hepatic or common bile duct stones Normal pancreas Spleen not enlarged Minimal perinephric stranding No ascites IMPRESSION: Significant hepatomegaly. Normal gallbladder. Normal common hepatic common bile duct Negative for pancreatitis
[2024-10-16] MEDS: Magnesium Sulfate 2 GM Ivpb 2 GM/50 ML BAG IV (11:35)
--- NOTE | 2024-10-16 11:42 | PC.NURSE ---
Dr. John informed of pt's not having a BM x 3 days. He placed order for daily Senna and Miralax. PRN Senna already given this morning; spoke w/ Araceli in pharmacy and she said she would retime it to start the Senna tomorrow. Noted.
[2024-10-16] MEDS: POLYETHYLENE GLYCOL 17 GM PACKET PO (11:54)
[2024-10-16 12:00] VITALS: PULSE 71
--- NOTE | 2024-10-16 14:26 | PC.CC ---
Addendum entered and electronically signed by Rhonda Kincaid RPh 10/18/24 15:12: PA approved through 10/17/25, updated [facility] [place]. Original Note: Request from LARISA Lau for PA on [employer] 3 Plus sensors. Submitted and pending.
--- NOTE | 2024-10-16 14:56 | PC.SS ---
rounding note: MRCP pending.
[2024-10-16 16:00] VITALS: PULSE 90
--- NOTE | 2024-10-16 19:30 | PC.NURSE ---
Pt informed of MRI taking place now instead of tomorrow if pt is agreeable; pt agreed. IV converted to saline lock for transfer. Tele leads and stickers removed for procedure. Pt transferred via w/c accompanied by GUERA Solis.
[2024-10-16 20:00] VITALS: BP 120/81; PULSE 75; RESP 16; TEMP 36.2; O2SAT 97
[2024-10-16] MEDS: ATORVASTATIN CALCIUM 20 MG TABLET PO (20:14)
[2024-10-16 22:00] VITALS: PULSE 78
[2024-10-17] VITALS (13 sets, daily range): BP systolic 124–154; BP diastolic 74–98; PULSE 64–87; RESP 16–18; TEMP 36.1–37; O2SAT 95–98; BMI 38.0
[2024-10-17] MEDS: RINGERS LACTATED 1000 ML 1,000 ML 150 ML IV ×2 (01:35→15:59)
[2024-10-17 06:05] LABS: Basophils # (Auto) 0.0 Thou/mm3 (0.0-0.2); Basophils % (Auto) 0 % (0-2.5); Eosinophils # (Auto) 0.3 Thou/mm3 (0.0-0.5); Eosinophils % (Auto) 4 % (0-10); Hematocrit 33.6 % (36.0-46.0); Hemoglobin 11.4 g/dL (12.0-16.0); Immature Granulocytes Auto 0.03 Thou/mm3 (0.00-0.00); Lymphocytes # (Auto) 2.1 Thou/mm3 (1.0-4.8); Lymphocytes % (Auto) 25 % (10-50); Mean Corpuscular HGB Conc 33.9 g/dl (31.0-37.0); Mean Corpuscular Hemoglobin 30.1 pg (25.0-35.0); Mean Corpuscular Volume 89 fL (80-100); Monocytes # (Auto) 0.6 Thou/mm3 (0.0-0.8); Monocytes % (Auto) 7 % (0-12); Neutrophils # (Auto) 5.2 Thou/mm3 (1.8-7.7); Neutrophils % (Auto) 64 % (37-80); Nucleated Red Blood Cell # 0.00 Thou/mm3 (0.00-0.00); Nucleated Red Blood Cell % 0 /100 WBC (0); Platelet Count 212 Thou/mm3 (140-440); RDW Standard Deviation 41.8 fL (36.4-46.3); Red Blood Count 3.79 Miln/mm3 (4.00-5.20); White Blood Count 8.1 Thou/mm3 (3.6-11.0)
[2024-10-17 06:39] LABS: Alanine Aminotransferase 18 U/L (10-49); Albumin, Serum 3.6 gm/dL (3.5-5.0); Albumin/Globulin Ratio 1.4 (1.2-2.2); Alkaline Phosphatase 88 U/L (46-116); Anion Gap 10 (7-16); Aspartate Amino Transferase 35 U/L (0-34); BUN/Creatinine Ratio 7 Ratio (12-20); Bilirubin,Total 0.6 mg/dL (0.3-1.2); Blood Urea Nitrogen < 5 mg/dL (9-23); Calcium 9.0 mg/dL (8.3-10.6); Calcium (Corrected) 9.3 mg/dL (8.5-10.1); Carbon Dioxide 27.9 mMol/L (20.0-31.0); Chloride 102 mMol/L (98-107); Creatinine (Component) 0.7 mg/dL (0.6-1.3); Estimated Creatinine Clearance 142.4 mL/min (>60); Globulin 2.5 gm/dL (2.3-3.5); Glucose 139 mg/dL (74-106); Magnesium 1.3 mg/dL (1.6-2.6); Osmolality,Calculated 278 (275-295); Phosphorous 3.9 mg/dL (2.4-5.1); Potassium 3.7 mMol/L (3.4-5.1); Sodium 140 mMol/L (136-145); Total Protein 6.1 gm/dL (5.7-8.2); Triglycerides 633 mg/dL (30-150); eGFR > 60 See Note
--- NOTE | 2024-10-17 08:48 | ESPR_ITS ---
<Statement entered by Héctor Branham MD - 10/18/24 13:50> In summary: Admitted for triglyceride induced acute pancreatitis, overall improved however still not tolerating oral intake secondary to abdominal pain. She has history of diabetes, and was taken off of glycemic control including INSULIN 4 years ago. On presentation her A1c was elevated. Currently on INSULIN and will discharge on home INSULIN. MRCP done 1 for right upper quadrant pain which is negative. Although her symptoms have resolved. Will discharge once tolerating oral intake. Case was discussed with attending physician. Héctor Branham, PGY II This document was transcribed using voice recognition technology. Minor inaccuracies may be present. Documentation for date of: 10/17/24 Subjective Subjective Interval history: Patient seen at the bedside. No acute overnight events. Patient mentions her last bowel movement was 4 days ago and feels bloated. Abdominal pain is still present approximately rating it at 8 out of 10, radiating to the back with the use of Dilaudid the pain subsides for a brief period approximately 1 to 2 hours before returning. Exam Vital Signs Temp Pulse Resp BP Pulse Ox O2 Del Method 97.9 F 64 16 154/98 H 97 Room Air 10/17/24 07:50 10/17/24 07:50 10/17/24 07:50 10/17/24 07:50 10/17/24 07:50 10/17/24 04:00 Narrative Exam Gen: Well-developed and well-nourished female in moderate distress. HEENT: NCAT, PERRLA, EOMI, MMM, anicteric conjunctivae. CVS: normal S1 and S2. Regular tachycardia. No M/R/G. Resp: CTA B/L. No rhonchi, rales, crackles or wheezing. Abd: soft, obese, tender in epigastrium, non-distended. BS+ in all 4 quadrants. MSK: Good ROM in BUE & BLE. No edema or rash. Neuro: CN II-XII grossly intact. Strength 5/5 in BUE & BLE. Alert and oriented x3. Objective Labs 10/18/24 05:17 10/18/24 05:17 Labs: Laboratory Results - last 24 hr 10/17/24 04:49 WBC 8.1 RBC 3.79 L Hgb 11.4 L Hct 33.6 L MCV 89 MCH 30.1 MCHC 33.9 RDW Std Deviation 41.8 Plt Count 212 Neut % (Auto) 64 Lymph % (Auto) 25 [place] % (Auto) 7 Eos % (Auto) 4 Baso % (Auto) 0 Neut # (Auto) 5.2 Lymph # (Auto) 2.1 [place] # (Auto) 0.6 Eos # (Auto) 0.3 Baso # (Auto) 0.0 Immature Gran # (Auto) 0.03 H Absolute Nucleated RBC 0.00 Immature Gran % 0 Nucleated RBC % 0 Sodium 140 Potassium 3.7 Chloride 102 Carbon Dioxide 27.9 Anion Gap 10 BUN < 5 L Creatinine 0.7 Estim Creat Clear Calc 142.4 eGFR > 60 BUN/Creatinine Ratio 7 L Glucose 139 H D Calculated Osmolality 278 Calcium 9.0 Corrected Calcium 9.3 Phosphorus 3.9 Magnesium 1.3 L Total Bilirubin 0.6 AST 35 H ALT 18 Alkaline Phosphatase 88 Total Protein 6.1 Albumin 3.6 Globulin 2.5 Albumin/Globulin Ratio 1.4 Triglycerides 633 H ABG Interpretation ABG results: 10/14/24 22:31 VBG pH 7.37 VBG pCO2 38 VBG pO2 83 H VBG Base Excess -3 Quality Measures Quality Measures VTE prophylaxis Assessment & Plan Assessment Current Active Medications: Generic Name Dose Route Start Last Admin Trade Name Freq PRN Reason Stop Dose Admin Acetaminophen 650 mg 10/14/24 19:46 10/16/24 07:45 Acetaminophen 325 Mg Tablet PO 11/13/24 19:45 650 mg Q6H PRN Administration PAIN SCALE 1-3 (mild Atorvastatin Calcium 20 mg 10/15/24 21:00 10/16/24 20:14 Atorvastatin Calcium 20 Mg Tablet PO 11/14/24 20:59 20 mg HS [place] Administration Dextrose 25 ml 10/14/24 21:40 Dextrose 50%-Water Inj 50 Ml Syringe IV 11/13/24 21:39 Q15MIN PRN Blood sugar between 50- 69 mg/dL Dextrose 50 ml 10/14/24 21:40 Dextrose 50%-Water Inj 50 Ml Syringe IV 11/13/24 21:39 Q15MIN PRN Blood sugar less than 50 mg/dL Fenofibrate 145 mg 10/15/24 10:45 10/16/24 09:39 Fenofibrate 145 Mg Tablet (Non-Formulary) PO 11/14/24 10:44 145 mg QDAY [place] Administration Glucagon 1 mg 10/15/24 10:37 Glucagon Inj 1 Mg Vial IM Q15MIN PRN BG <70, and no IV access Heparin Sodium (Porcine) 5,000 unit 10/14/24 21:00 10/16/24 20:14 Heparin Sod Inj 5000 Unit/Ml Vial SC 10/28/24 20:59 5,000 unit Q12HR [place] Administration Hydromorphone HCl 1 mg 10/14/24 19:57 10/16/24 23:47 Hydromorphone Inj 2 Mg/Ml Vial IVP 10/19/24 19:56 1 mg Q4H PRN Administration Pain 7-10 Lactated Ringer's 1,000 mls @ 150 mls/hr 10/15/24 15:21 10/17/24 01:35 Lactated Ringers IV 11/14/24 15:20 150 mls/hr .Q6H40M [place] Administration Magnesium Sulfate 4 gm in 50 mls @ 12.5 mls/hr 10/17/24 08:30 Magnesium Sulfate Ivpb IV 10/17/24 12:29 X1 ONE Insulin Glargine 25 unit 10/15/24 10:45 10/16/24 08:42 Insulin Glargine (Lantus) 5 Unit/0.05 Ml (Per 5 Units) SC 11/14/24 10:44 25 unit QDAY [place] Administration Insulin Human Lispro 0 unit 10/15/24 11:30 10/16/24 20:18 Insulin Lispro (Admelog) 1 Unit/0.01 Ml Unit SC 11/14/24 11:29 Not Given ACHS [facility] Protocol Ondansetron HCl 4 mg 10/14/24 19:46 10/15/24 16:27 Ondansetron Inj 2 Mg/Ml Inj 2 Ml IVP 11/13/24 19:45 4 mg Q6H PRN Administration NAUSEA OR VOMITING Protocol Polyethylene Glycol 17 gm 10/16/24 11:45 10/16/24 11:54 Polyethylene Glycol 17 Gm Packet PO 11/15/24 11:44 17 gm QDAY [place] Administration Sennosides 1 tab 10/17/24 09:00 Senna Tablet PO 11/16/24 08:59 QDAY [facility] Protocol Plan Assessment: 34 years old female with a PMH of HTN and T2DM presented to the ED with abdominal pain and vomiting, was admitted for the work-up and management of acute pancreatitis and was upgraded to ICU for insulin drip due to TG-induced pancreatitis. Patient is stable and downgraded to telemetry for further management. #Hypertriglyceridemia-induced acute pancreatitis. Patient presented with abdominal pain and vomiting, and prior history of admission due to pancreatitis, CTAP showed acute pancreatitis with wall thickening involving the common bile duct (radiology recommends MRCP follow-up to confirm pancreatitis and exclude cholangitis) and hepatosplenomegaly. Labs showed Lipase 49, TG 1428, LFTs and t.bili are WNL. Patient does not have any Charcot triad symptoms other than RUQ pain which appears to be referred pain from epigastrium, at this moment low suspicion for cholangitis. Triglyceride level 633 today, downtrending Plan: -IV Dilaudid 1 mg q4H prn and IV morphine 1mg q4H prn for pain management per scale. -Continue LR 150 cc/h -Fenofibrate 145 mg daily ?Atorvastatin 20 mg daily RUQ pain Enlarged CBD Has RUQ pain, positive Mackey signs, and enlarged CBD on liver US. Pending MRCP to r/o choledocholithiasis or gallstone pancreatitis. #Uncontrolled type 2 diabetes mellitus, A1c 10.1 Upon admission, patient had a high blood glucose of 290 and high LDH of 380 with UA showing 4+ glucose and 2+ ketones. She also had an elevated anion gap of 19, a normal beta-hydroxybutyrate of 0.4 and VBG pH 7.37. Patient stated that her diabetes has resolved and her PCP took off her DM medications. Plan: -Lantus 25 units daily -Sliding scale insulin -Diabetic education, referral to dietitian #Constipation Mild abdominal distention, patient feels bloated, likely worsening pain in the abdomen Last BM was 4 days ago ? Scheduled senna 1 tab daily ? Scheduled MiraLAX 17 g daily ?Scheduled lactulose daily #Hypomagnesemia Magnesium 1.3 ? Magnesium sulfate 4 g IV x 1 Health Maintenance: Diet: Peptic ulcer/GERD diet DVT prophylaxis: Heparin GI prophylaxis: none Code status: Full code Disposition: Telemetry Case discussed with my attending Dr. Merchant, and senior resident, Dr. Carrol John MD PGY-1 Attending Provider Attestation/Addendum Patient seen and examined. Complains of abdominal pain and nausea vomiting. Tolerating p.o. intake. She was admitted for acute pancreatitis. MRCP negative. I discussed with and supervised the resident physician who took care of this patient. I agree with the assessment and plan as above.
[2024-10-17] MEDS: POLYETHYLENE GLYCOL 17 GM PACKET PO (09:17)
[2024-10-17] MEDS: FENOFIBRATE 145 MG TABLET (NON-FORMULARY) PO (09:17)
[2024-10-17] MEDS: INSULIN LISPRO (AdmeLOG) 1 UNIT/0.01 ML UNIT SC (09:18)
[2024-10-17] MEDS: HYDROmorphone INJ 2 MG/ML VIAL 1 MG IVP ×3 (09:18→22:16)
[2024-10-17] MEDS: HEPARIN SOD INJ 5000 UNIT/ML VIAL SC ×2 (09:18→21:57)
[2024-10-17] MEDS: Magnesium Sulfate 4 GM Ivpb 4 GM/50 ML BAG IV (09:18)
[2024-10-17] MEDS: INSULIN GLARGINE (Lantus) 5 UNIT/0.05 ML (PER 5 UNITS) 25 UNIT SC (09:19)
[2024-10-17] MEDS: LOSARTAN POTASSIUM 25 MG TABLET 50 MG PO (13:14)
[2024-10-17] MEDS: LACTULOSE SYRUP 20 GM/30 ML UDC 10 GM PO (17:55)
[2024-10-17] MEDS: ATORVASTATIN CALCIUM 20 MG TABLET PO (21:56)
[2024-10-18] VITALS (8 sets, daily range): BP systolic 121–151; BP diastolic 79–93; PULSE 69–98; RESP 15–16; TEMP 36.2–36.9; O2SAT 95–98; BMI 37.8
[2024-10-18] MEDS: HYDROmorphone INJ 2 MG/ML VIAL 1 MG IVP ×2 (04:04→09:00)
[2024-10-18 06:35] LABS: Basophils # (Auto) 0.0 Thou/mm3 (0.0-0.2); Basophils % (Auto) 1 % (0-2.5); Eosinophils # (Auto) 0.4 Thou/mm3 (0.0-0.5); Eosinophils % (Auto) 5 % (0-10); Hematocrit 35.5 % (36.0-46.0); Hemoglobin 11.7 g/dL (12.0-16.0); Immature Granulocytes Auto 0.06 Thou/mm3 (0.00-0.00); Lymphocytes # (Auto) 1.9 Thou/mm3 (1.0-4.8); Lymphocytes % (Auto) 23 % (10-50); Mean Corpuscular HGB Conc 33.0 g/dl (31.0-37.0); Mean Corpuscular Hemoglobin 30.0 pg (25.0-35.0); Mean Corpuscular Volume 91 fL (80-100); Monocytes # (Auto) 0.6 Thou/mm3 (0.0-0.8); Monocytes % (Auto) 7 % (0-12); Neutrophils # (Auto) 5.2 Thou/mm3 (1.8-7.7); Neutrophils % (Auto) 64 % (37-80); Nucleated Red Blood Cell # 0.00 Thou/mm3 (0.00-0.00); Nucleated Red Blood Cell % 0 /100 WBC (0); Platelet Count 223 Thou/mm3 (140-440); RDW Standard Deviation 41.1 fL (36.4-46.3); Red Blood Count 3.90 Miln/mm3 (4.00-5.20); White Blood Count 8.2 Thou/mm3 (3.6-11.0)
[2024-10-18 07:01] LABS: Alanine Aminotransferase 34 U/L (10-49); Albumin, Serum 3.8 gm/dL (3.5-5.0); Albumin/Globulin Ratio 1.5 (1.2-2.2); Alkaline Phosphatase 92 U/L (46-116); Anion Gap 11 (7-16); Aspartate Amino Transferase 58 U/L (0-34); BUN/Creatinine Ratio 8 Ratio (12-20); Bilirubin,Total 0.7 mg/dL (0.3-1.2); Blood Urea Nitrogen 6 mg/dL (9-23); Calcium 9.1 mg/dL (8.3-10.6); Calcium (Corrected) 9.3 mg/dL (8.5-10.1); Carbon Dioxide 27.1 mMol/L (20.0-31.0); Chloride 101 mMol/L (98-107); Creatinine (Component) 0.8 mg/dL (0.6-1.3); Estimated Creatinine Clearance 124.9 mL/min (>60); Globulin 2.6 gm/dL (2.3-3.5); Glucose 137 mg/dL (74-106); Magnesium 1.8 mg/dL (1.6-2.6); Osmolality,Calculated 277 (275-295); Phosphorous 4.2 mg/dL (2.4-5.1); Potassium 3.5 mMol/L (3.4-5.1); Sodium 139 mMol/L (136-145); Total Protein 6.4 gm/dL (5.7-8.2); eGFR > 60 See Note
[2024-10-18] MEDS: HEPARIN SOD INJ 5000 UNIT/ML VIAL SC (08:58)
[2024-10-18] MEDS: LOSARTAN POTASSIUM 25 MG TABLET 50 MG PO (08:59)
[2024-10-18] MEDS: FENOFIBRATE 145 MG TABLET (NON-FORMULARY) PO (09:00)
[2024-10-18] MEDS: INSULIN GLARGINE (Lantus) 5 UNIT/0.05 ML (PER 5 UNITS) 25 UNIT SC (09:01)
--- NOTE | 2024-10-18 10:23 | ESDS_ITS ---
<Statement entered by Timmy Thornton MD - 10/18/24 18:39> I have reviewed the note and agree with the resident's assessment & plan with exceptions as below. I have personally reviewed labs, imaging, home meds/prior records, examined the patient, formulated and discussed management plan with the IM team. Patient examined at bedside today. Patient is tolerating p.o. food and has not been nauseous. Patient's abdominal pain is improving and is minimal at this time. Patient will require CGM, basal insulin, and fenofibrate upon discharge. Patient will require repeat triglyceride level in 1 week in which she was given a lab slip for. Pancreatitis related to hypertriglyceridemia. With her A1c of 10, she will continue to use insulin and recheck her A1c with her primary care doctor. Will give as needed Toradol for pain analgesia on discharge. Patient was then discharged with instructions listed below. Timmy Thornton, PGY-2 Internal Medicine Planned Discharge Date 10/18/24 DS: Providers Provider Date of admission: 10/14/24 19:46 Primary care physician: Lissette Portillo PA-C Admitting Provider: ePte Arroyo DO Attending Provider on Admission: Jorge Merchant MD Consults: 10/14/24 22:26 Referral Registered Dietitian Routine Comment: 10/15/24 10:39 Referral Registered Dietitian Routine Comment: Attending Provider on DC: Dr. Mendosa Discharging Provider: Dr. Mendosa DS: Diagnosis Problem List Completed Was Problem List Reviewed/Reconciled?: Yes Hospital Course Hospital Course Hospital course: 34 years old female with a PMH of HTN and type 2 diabetes mellitus who presented to the ED with abdominal pain and vomiting. The patient was admitted for work-up and management of acute pancreatitis. The lipid panel after admission showed TG 1428 therefore she was upgraded to ICU due to TG-induced pancreatitis for insulin drip. ED course: Patient's vitals indicated HTN (BP 148/96) and tachycardia (HR 101). Initial labs revealed significant abnormalities, including a high WBC (17.1 with neutrophilic predominance), signs of metabolic acidosis (low CO2 17.2, high AG 19), hyperglycemia (BG 290), hypomagnesemia (Mg 1.3), and elevated ALP (121) and LDH (380). UA further supported these findings with turbidity, 1+ protein, 4+ glucose, 2+ ketones, and high urine squamous epithelial cells (14). In response, the patient received aggressive fluid resuscitation with two 1L IV NS boluses, IV MgSO4 4gm x1, 10 units regular insulin x1 for hyperglycemia, and medications for symptom management including PO simethicone, IV Dilaudid 1mg x1, IV famotidine x1, and IV Zofran x1. ICU course: The patient was admitted to the ICU for triglyceride-induced pancreatitis, confirmed by CT imaging showing acute pancreatitis with common bile duct thickening and hepatosplenomegaly. Initial triglyceride levels were extremely high (1428), necessitating an insulin drip. Triglycerides downtrended, allowing for discontinuation of the insulin drip and transition to subcutaneous insulin. The patient began a diabetic liquid diet. Fenofibrate was initiated for further triglyceride reduction. Her A1c was 10.1, prompting a diabetic education referral.The patient became stable and was downgraded to telemetry. Telemetry course: Throughout her hospital stay, the patient tolerated oral intake and experienced no nausea. Her abdominal pain improved to a minimal level. Upon discharge, she required a continuous glucose monitor (CGM), basal insulin, and fenofibrate for ongoing management of her hypertriglyceridemia-related pancreatitis and elevated A1c of 10.1%. She was given a lab slip for a repeat triglyceride level in one week and was instructed to follow up with her primary care doctor for A1c recheck and continued insulin management. She was discharged with Toradol for as-needed pain control and comprehensive discharge instructions. Discharge instructions: * Follow-up with PCP within 1-2 weeks of discharge. * Recommended referral to merchandising director for management of diabetes and hypertriglyceridemia. * Continue taking INSULIN GLARGINE 25 units subcu every day at night (NEW). * Continue taking ATORVASTATIN 20 mg daily at night (NEW). * Continue taking FENOFIBRATE 145 mg daily (NEW). * We increased your LOSARTAN to 50 mg daily, please continue with the new dose. * Continue taking ONDANSETRON 4 mg every 4 hours as needed for nausea (NEW). * Continue taking MIRALAX 1 packet daily for constipation (NEW). * Continue taking KETOROLAC 10 mg every 8 hours as needed for severe (NEW). * Continue taking medications as prescribed below. * Return to Emergency Room if symptoms persist, worsen, or new symptoms develop. Admission diagnoses: #Hypertriglyceridemia-induced acute pancreatitis. #Uncontrolled type 2 diabetes mellitus, A1c 10.1 #Constipation #Hypomagnesemia Case discussed with my attending Dr. Mendosa, and senior resident, Dr. Hillary John MD PGY-1 Time Spent with Patient Time attestation: Total time spent providing and/or coordinating discharge services: Time spent: Greater than 30 minutes Exam Vital Signs Temp Pulse Resp BP Pulse Ox O2 Del Method 98.5 F 69 15 130/88 H 97 Room Air 10/18/24 07:37 10/18/24 08:59 10/18/24 07:37 10/18/24 08:59 10/18/24 07:37 10/18/24 04:00 Narrative Exam Gen: Well-developed and well-nourished female in moderate distress. HEENT: NCAT, PERRLA, EOMI, MMM, anicteric conjunctivae. CVS: normal S1 and S2. Regular tachycardia. No M/R/G. Resp: CTA B/L. No rhonchi, rales, crackles or wheezing. Abd: soft, mild tender in epigastrium, non-distended. BS+ in all 4 quadrants. MSK: Good ROM in BUE & BLE. No edema or rash. Neuro: CN II-XII grossly intact. Strength 5/5 in BUE & BLE. Alert and oriented x3. Discharge Plan Plan Patient Disposition: HOME (Self Care) Patient condition on transfer: Stable Care Plan Goals: * Follow-up with PCP within 1-2 weeks of discharge. * Recommended referral to merchandising director for management of diabetes and hypertriglyceridemia. * Continue taking INSULIN GLARGINE 25 units subcu every day at night (NEW). * Continue taking ATORVASTATIN 20 mg daily at night (NEW). * Continue taking FENOFIBRATE 145 mg daily (NEW). * We increased your LOSARTAN to 50 mg daily, please continue with the new dose. * Continue taking ONDANSETRON 4 mg every 4 hours as needed for nausea (NEW). * Continue taking MIRALAX 1 packet daily for constipation (NEW). * Continue taking KETOROLAC 10 mg every 8 hours as needed for severe (NEW). * Continue taking medications as prescribed below. * Return to Emergency Room if symptoms persist, worsen, or new symptoms develop. Prescriptions/Referrals Prescriptions/Med Rec: New (DME) FreeStyle Mayte 3 Plus Sensor Device See Rx Instructions .Route Qty: 1 2RF Rx Instructions: As directed fenofibrate nanocrystallized 145 mg Tablet 145 mg PO QDAY Qty: 30 0RF polyethylene glycol 3350 [HealthyLax] 17 gram Powder In Packet 17 g PO QDAY Qty: 30 0RF ketorolac 10 mg tablet 10 mg PO Q8H PRN (Reason: pain) Qty: 14 0RF Rx Instructions: maximum total duration of 5 days from all oral, intranasal, or parenteral formulations ondansetron HCl 4 mg tablet 4 mg PO Q8H PRN (Reason: nausea and vomiting) Qty: 14 0RF atorvastatin 20 mg Tablet 20 mg PO HS Qty: 30 0RF insulin glargine 100 unit/mL (3 mL) insulin pen 25 unit subcut QAM Qty: 15 1RF (DME) pen needle, diabetic [Pen Needle] 29 gauge x 1/2 needle See Rx Instructions .Route Qty: 100 2RF Rx Instructions: As directed insulin glargine U-300 conc 300 unit/mL (3 mL) insulin pen 25 unit subcut QDAY 30 Days Qty: 6 1RF Rx Instructions: Inject 25 units in the morning once a day as directed Continued (DME) blood-glucose meter [Blood Glucose Monitoring] Kit See Rx Instructions .ROUTE .MEDSUPPLY Qty: 1 0RF Rx Instructions: As directed check BS 3 times a day (DME) pen needle, diabetic [Lite Touch Insulin Pen [place]] 31 gauge x 1/4 needle See Rx Instructions .ROUTE .MEDSUPPLY Qty: 50 0RF Rx Instructions: As directed (DME) Blood Glucose Test Strip See Rx Instructions .ROUTE .MEDSUPPLY Qty: 100 0RF Rx Instructions: As directed check BS 3 times a day (DME) lancets [BD Ultra Fine Lancets] 33 gauge misc See Rx Instructions .ROUTE .MEDSUPPLY Qty: 100 0RF Rx Instructions: As directed check BS 3 times a day losartan 50 mg tablet 50 mg PO DAILY Patient Comments: TAKE 1 TABLET BY MOUTH DAILY FOR BLOOD PRESSURE Discontinued ferrous sulfate 325 mg (65 mg iron) tablet 325 mg PO BID Qty: 60 1RF Referrals: Lissette Portillo PA-C [Primary Care Provider] - Outpatient Orders (i.e. Home Health, Labs, Imaging): Triglycerides (Routine) Timeframe: 1 Week Location: Determined by Patient Ordered By: Timmy Thornton Patient/Caregiver Discharge Instructions Education Materials: Pancreatitis Acute Dc, ED Diabetic Insulin Reaction, ED High Cholesterol, ED Diet: Diabetes, ED Using an Injection Pen Print Language: Urdu Stand Alone Forms: [employer]ie Award Info., Patient Portal Info Letter Discharge Order Discharge Orders: Discharge (Routine); Ordered 10/18/24 Ordered By: Héctor Branham Quality Discharge Quality Measures VTE prophylaxis MD Attestestation MD Attestation I attest that I was physically present for the evaluation, physical examination, lab and imaging review of the patient with the residents. I discussed the case with the residents and agree with the findings and plans of care as documented above. Monika Mendosa MD
[2024-10-18] MEDS: INSULIN LISPRO (AdmeLOG) 1 UNIT/0.01 ML UNIT SC (11:54)
== END 2024-10-18 13:49 | disposition home or self-care (01) | DRG 282 ==
LOC: SERX 18:15 → SERHOLD 20:02 → S2NX 21:37 → S2SX 21:54 → S2NX 10-15 18:43 → S3SX 10-16 03:12
PROVIDERS: Emergency Medicine; Physician Assistant; Student in an Organized Health Care Education/Training Program; Admitting Provider Student in an Organized Health Care Education/Training Program; Emergency Provider Emergency Medicine; PCP Physician Assistant; Visit Provider Internal Medicine
DX: K85.80 Other acute pancreatitis without necrosis or infection (principal); I10 Essential (primary) hypertension; K83.09 Other cholangitis; E83.42 Hypomagnesemia; E11.10 Type 2 diabetes mellitus with ketoacidosis without coma; D64.9 Anemia, unspecified; E78.1 Pure hyperglyceridemia; Z79.4 Long term (current) use of insulin; Z79.899 Other long term (current) drug therapy; Z98.891 History of uterine scar from previous surgery; K59.00 Constipation, unspecified; Z88.0 Allergy status to penicillin
CPT/HCPCS: 36415; 71046; 71260; 74177; 74181; 76705; 80048; 80053; 80061; 80069; 80307; 81001; 81025; 82010; 82803; 83036; 83605; 83615; 83690; 83735; 83880; 84100; 84132; 84145; 84478; 84484; 85025; 85379; 85610; 85730; 87040; 93005; 93225; 96361; 96374; 96375; 96376; A4649; J1171; J1644; J1815; J2270; J2405; J3475; J3480; J3490; J7030; J7120; Q9967; A9270